=== PATIENT | female | born 1980 | race Caucasian/White ===

== ENCOUNTER 2018-06-29 18:46 | Inpatient (IN) | payer OTHER ==
[2018-06-29 20:03] LABS: EGFR Non-African American 103.9 (>60)
[2018-06-29 20:34] LABS: Hematocrit 30 % (35-47); Hemoglobin 10.4 g/dl (12.0-16.0); Mean Corpuscular HGB Conc 35 g/dl (31-36); Mean Corpuscular Hemoglobin 37 pg (27-31); Mean Corpuscular Volume 107 fL (80-97); Mean Platelet Volume 8.9 um3 (7.4-10.4); Platelet Count 126 10^3/ul (150-450); Red Blood Count 2.78 10^6/ul (4.00-5.40); Red Cell Distribution Width 16 % (10.5-15)
[2018-06-29 21:07] LABS: ABS Basophils 0.1 10^3/ul (0-0.2); ABS Eosinophils 0 10^3/ul (0-0.6); ABS Lymphocytes 0.8 10^3/ul (1.0-4.8); ABS Monocytes 0.6 10^3/ul (0-0.8); ABS Neutrophils 7.5 10^3/ul (1.5-7.7); ABS Nucleated RBC 0 10^3/ul
--- NOTE | 2018-06-29 21:09 | ED ---
Abdominal Pain/Female - HPI Summary HPI Summary: This patient is a 38 year old F presenting to [facility] with a chief complaint of upper abd pain that began one week ago. The patient rates the pain 8/10 in severity. Symptoms aggravated by nothing. Symptoms alleviated by nothing. Patient reports recent weight loss (170 lbs five months ago and is now 140 lbs) , diarrhea, nausea, vomiting, and abdominal bloating. - History of Current Complaint Chief Complaint: EDAbdPain Stated Complaint: ABD PAIN/BLOATING/VOMITING Time Seen by Provider: 06/29/18 20:52 Hx Obtained From: Patient Hx Last Menstrual Period: 06/30/15 ?: No Onset/Duration: Sudden Onset, Lasting Weeks, Still Present Timing: Constant Severity Initially: Severe Severity Currently: Severe Pain Intensity: 8 Pain Scale Used: 0-10 Numeric Location: Other - Upper Radiates: No Aggravating Factor(s): Nothing Alleviating Factor(s): Nothing Associated Signs and Symptoms: Positive: Other: - Positive recent weight loss ( 170 lbs five months ago and is now 140 lbs), diarrhea, nausea, vomiting, and abdominal bloating. Allergies/Adverse Reactions: Allergies Allergy/AdvReac Type Severity Reaction Status Date / Time No Known Allergies Allergy Verified 06/29/18 18:50 PMH/Surg Hx/FS Hx/Imm Hx Previously Healthy: Yes Endocrine/Hematology History: Denies: Hx Diabetes, Hx Thyroid Disease Cardiovascular History: Denies: Hx Hypertension Respiratory History: Denies: Hx Asthma, Hx Chronic Obstructive Pulmonary Disease (COPD) GI History: Denies: Hx Ulcer Infectious Disease History: No Infectious Disease History: Denies: Hx Hepatitis, Hx Human Immunodeficiency Virus (HIV), Traveled Outside the [place] in Last 30 Days - Family History Known Family History: Positive: Other - Pulmonary hypertension - Social History Occupation: Employed Full-time Lives: With Family Alcohol Use: None Hx Substance Use: No Substance Use Type: Reports: None Hx Tobacco Use: Yes Smoking Status (MU): Heavy Every Day Tobacco Smoker Amount Used/How Often: 1 PPD Review of Systems Negative: Fever Positive: Abdominal Pain, Vomiting, Diarrhea, Nausea, Other - Positive recent weight loss and abdominal bloating All Other Systems Reviewed And Are Negative: Yes Physical Exam - Summary Physical Exam Summary: Appearance: Well appearing, no pain distress Skin: warm, dry, reflects adequate perfusion Head/face: normal Eyes: EOMI, WHITLEY, yellow sclera ENT: normal Neck: supple, non-tender Respiratory: CTA, breath sounds present Cardiovascular: RRR, pulses symmetrical Abdomen: tenderness in epigastric and RUQ, soft Bowel: present Musculoskeletal: normal, strength/ROM intact Neuro: normal, sensory motor intact, A&Ox3 Triage Information Reviewed: Yes Vital Signs On Initial Exam: Initial Vitals Temp Pulse Resp BP Pulse Ox 98.2 F 106 18 137/85 100 06/29/18 18:47 06/29/18 18:47 06/29/18 18:47 06/29/18 18:47 06/29/18 18:47 Vital Signs Reviewed: Yes Diagnostics - Vital Signs Vital Signs Temp Pulse Resp BP Pulse Ox 06/29/18 18:47 98.2 F 106 18 137/85 100 - Laboratory Lab Results: Lab Results 06/29/18 06/29/18 Range/Units 19:31 19:31 WBC 9.0 (3.5-10.8) 10^3/ul RBC 2.78 L (4.00-5.40) 10^6/ul Hgb 10.4 L (12.0-16.0) g/dl Hct 30 L (35-47) % MCV 107 H (80-97) fL MCH 37 H (27-31) pg MCHC 35 (31-36) g/dl RDW 16 H (10.5-15) % Plt Count 126 L (150-450) 10^3/ul MPV 8.9 (7.4-10.4) um3 Neut % (Auto) Pending Lymph % (Auto) Pending Sunflower % (Auto) Pending Eos % (Auto) Pending Baso % (Auto) Pending Absolute Neuts (auto) Pending Absolute Lymphs (auto) Pending Absolute Monos (auto) Pending Absolute Eos (auto) Pending Absolute Basos (auto) Pending Absolute Nucleated RBC Pending Nucleated RBC % Pending Sodium 133 L (135-145) mmol/L Potassium 2.8 L (3.5-5.0) mmol/L Chloride 97 L (101-111) mmol/L Carbon Dioxide 25 (22-32) mmol/L Anion Gap 11 (2-11) mmol/L BUN 7 (6-24) mg/dL Creatinine 0.64 (0.51-0.95) mg/dL Est GFR ( Amer) 125.7 (>60) Est GFR (Non-Af Amer) 103.9 (>60) BUN/Creatinine Ratio 10.9 (8-20) Glucose 123 H (70-100) mg/dL Calcium 8.1 L (8.6-10.3) mg/dL Total Bilirubin 4.20 H (0.2-1.0) mg/dL AST 383 H (13-39) U/L ALT 105 H (7-52) U/L Alkaline Phosphatase 86 (34-104) U/L C-Reactive Protein 14.75 H (<8.01) mg/L Total Protein 9.1 H (6.4-8.9) g/dL Albumin 2.9 L (3.2-5.2) g/dL Globulin 6.2 H (2-4) g/dL Albumin/Globulin Ratio 0.5 L (1-3) Lipase 167 H (11.0-82.0) U/L Beta HCG, Quant < 0.60 mIU/mL Result Diagrams: 06/29/18 19:31 06/29/18 19:31 Lab Statement: Any lab studies that have been ordered have been reviewed, and results considered in the medical decision making process. - CT CT Abdomen and Pelvis CT Interpretation Completed By: Radiologist Summary of CT Findings: CT abdomen and pelvis reveals, per radiologist, 1. Diffuse colonic wall thickening which could represent colitis or sequela of hypoproteinemia.. No pneumatosis or portal venous air. No bowel obstruction. 2. Distended thickwalled gallbladder. No calcified gallstones. This finding may also be secondary to hypoproteinemia but cholecystitis cannot be excluded radiographically. A HIDA scan may be helpful to exclude cystic duct obstruction. 3. Moderate ascites. ED physician has reviewed this radiology report. - Additional Comments Diagnostic Additional Comments: Gallbladder US reveals, per radiologist, 1. No shadowing gallstones. Thickened gallbladder wall measuring 6 mm. Layering gallbladder sludge. 2. Hepatic steatosis and hepatomegaly. 3. Ascites. ED physician has reviewed this radiology report. Abdominal Pain Fem Course/Dx - Course Course Of Treatment: This patient is a 38 year old F presenting to [facility] with a chief complaint of upper abd pain that began one week ago. Physical Exam Findings: Yellow sclera, tenderness in epigastric and RUQ. An EKG taken at 2139 reveals normal sinus rhythm at 91 BPM with no acute changes. Gallbladder US reveals, per radiologist, 1. No shadowing gallstones. Thickened gallbladder wall measuring 6 mm. Layering gallbladder sludge. 2. Hepatic steatosis and hepatomegaly. 3. Ascites. CT abdomen and pelvis reveals, per radiologist, 1. Diffuse colonic wall thickening which could represent colitis or sequela of hypoproteinemia.. No pneumatosis or portal venous air. No bowel obstruction. 2. Distended thickwalled gallbladder. No calcified gallstones. This finding may also be secondary to hypoproteinemia but cholecystitis cannot be excluded radiographically. A HIDA scan may be helpful to exclude cystic duct obstruction. 3. Moderate ascites. Bloodwork and UA obtained. In the ED course the patient was given contrast, potassium chloride, and Zosyn. Consult with Dr. Perry (hospitalist) at 0025. She recommends patient be transferred. Consult with [facility] at 0051. They communicated they have no beds available for transfer. Consult with [facility] at 0137. They recommended a MRCP be performed here and if there is an obstruction they will accept the transfer. [place] [id number]. She agrees to admit patient for further evaluation. The patient is agreeable with this plan. - Diagnoses Differential Diagnosis: Positive: Diverticulitis, Gall Bladder Disease, Pancreatitis, Renal Colic, Urinary Tract Infection Provider Diagnoses: Abdominal pain, Ascites, Hepatitis, Alcoholism, Acalculous cholecystitis - Provider Notifications Discussed Care Of Patient With: Ruth Perry Time Discussed With Above Provider: 00:25 Instructed by Provider To: Other - Consult with Dr. Perry (hospitalist) at 0025. She recommends patient be transferred. Consult with [facility] at 0051. They communicated they have no beds available for transfer. Consult with [facility] at 0137. They recommended a MRCP be performed here and if there is an obstruction they will accept the transfer. [place] [id number]. She agrees to admit patient for further evaluation. - Critical Care Time Critical Care Time: 30-74 min Discharge - Sign-Out/Discharge Documenting (check all that apply): Patient Departure - Admit to [facility] [place] - Discharge Plan Condition: Stable Disposition: ADMITTED TO [facility] Referrals: No Primary Care Phys,NOPCP [Primary Care Provider] - - Billing Disposition and Condition Condition: STABLE Disposition: Admitted to [facility] - Attestation Statements Document Initiated by Scribe: Yes Documenting Scribe: Licha March Provider For Whom Dayana is Documenting (Include Credential): Ken Ruiz MD Scribe Attestation: ILicha, scribed for Ken Ruiz MD on 06/30/18 at 0225. Scribe Documentation Reviewed: Yes Provider Attestation: The documentation as recorded by the vijiibLicha carvalho accurately reflects the service I personally performed and the decisions made by me, Ken Ruiz MD
[2018-06-29 21:10] LABS: ABS Basophils 0 10^3/ul (0-0.2); ABS Neutrophils 7.3 10^3/ul (1.5-7.7); Monocytes % 4 % (0-7)
--- NOTE | 2018-06-29 21:56 | RAD ---
EXAM: US Abdomen Limited, Right Upper Quadrant EXAM DATE/TIME: 06/29/2018 9:37 PM CLINICAL HISTORY: 38 years old, female; Pain; Abdominal pain; Localized; Right upper quadrant (ruq); Additional info: Cholecystitis TECHNIQUE: Real-time ultrasound of the abdomen with image documentation. Examination was focused on the right upper quadrant. COMPARISON: No relevant prior studies available. FINDINGS: Liver: The liver is enlarged measuring 20 cm craniocaudad. No focal mass identified.The liver is diffusely echogenic consistent with fatty infiltration. Gallbladder: No shadowing gallstones identified. Layering high density sludge is noted in the gallbladder. The gallbladder wall is thickened measuring 6 mm. Common bile duct: The common bile duct measures 0.4 cm. Pancreas: The pancreatic tail is obscured by bowel gas. Remainder of the gland is normal in appearance. Right kidney: The right kidney measures 11.4 x 5.1 x 5.6 cm. No shadowing stones or hydronephrosis. Intraperitoneal space: Fluid is noted in all 4 quadrants of the abdomen. IMPRESSION: 1. No shadowing gallstones. Thickened gallbladder wall measuring 6 mm. Layering gallbladder sludge. 2. Hepatic steatosis and hepatomegaly. 3. Ascites. To contact [facility] with a general question: [facility] - [phone] For direct physician to physician contact: Physician Hotline - [phone] [facility] ([facility] Facility ID #[id number])
[2018-06-29] MEDS ORDERED: Potassium Chlor TAB* 20 MEQ TAB.ER PO ONE (22:12)
[2018-06-29 22:50] LABS: Urine Appearance Cloudy; Urine Blood Negative (Negative); Urine Color Amber; Urine Ketones Trace (Negative); Urine Protein 2+(100 mg/dL) (Negative); Urine Red Blood Cell Absent (Absent); Urine Specific Gravity 1.023 (1.010-1.030); Urine Urobilinogen Positive (Negative); Urine White Blood Cell Trace(0-5/hpf) (Absent)
[2018-06-29] MEDS ORDERED: Iohexol 300* (CONTRAST) 10 ML SDV IV ONE (23:33)
[2018-06-30] MEDS ORDERED: Potassium Chlor TAB* 20 MEQ TAB.ER PO ONE (00:17)
[2018-06-30] MEDS ORDERED: Piperacillin/Tazobac ADVAN(*) 3.375 GM in NS 0.9% 100 ML* 100 ML IVPB ONE (00:28)
--- NOTE | 2018-06-30 00:31 | RAD ---
EXAM: CT Abdomen and Pelvis With Intravenous Contrast EXAM DATE/TIME: 06/29/2018 11:47 PM CLINICAL HISTORY: 38 years old, female; Pain; Abdominal pain; Flank; Upper; Additional info: Ab pain/pancreatitis TECHNIQUE: Axial computed tomography images of the abdomen and pelvis with intravenous contrast. All CT scans at this facility use at least one of these dose optimization techniques: automated exposure control; mA and/or kV adjustment per patient size (includes targeted exams where dose is matched to clinical indication); or iterative reconstruction. Coronal and sagittal reformatted images were created and reviewed. CONTRAST: 85 ml of OMNI 300 administered intravenously. COMPARISON: GB US GALL BLADDER 06/29/2018 9:20 PM FINDINGS: Lower thorax: No acute findings. ABDOMEN: Liver: Enlarged measuring 21 cm craniocaudad.. No focal mass identified. No intrahepatic biliary dilatation. Gallbladder and bile ducts: The gallbladder is distended with thickened wall. No calcified gallstones identified. Pancreas: Unremarkable. No ductal dilation. Spleen: Unremarkable. No splenomegaly. Adrenals: Unremarkable. No mass. Kidneys and ureters: No mass or hydronephrosis. Stomach and bowel: Wall of the colon is diffusely thickened. No pneumatosis or portal venous air. No bowel obstruction. Appendix: No evidence of appendicitis. PELVIS: Bladder: Unremarkable as visualized. Reproductive: 1.3 cm cystic structure in the cervix, likely a nabothian cyst. ABDOMEN and PELVIS: Intraperitoneal space: Moderate ascites in the abdomen and pelvis. No free air. Bones/joints: No acute fracture or dislocation. Soft tissues: Unremarkable. Vasculature: No abdominal aortic aneurysm. Lymph nodes: No enlarged lymph nodes. IMPRESSION: 1. Diffuse colonic wall thickening which could represent colitis or sequela of hypoproteinemia.. No pneumatosis or portal venous air. No bowel obstruction. 2. Distended thickwalled gallbladder. No calcified gallstones. This finding may also be secondary to hypoproteinemia but cholecystitis cannot be excluded radiographically. A HIDA scan may be helpful to exclude cystic duct obstruction. 3. Moderate ascites. To contact [facility] with a general question: [facility] - [phone] For direct physician to physician contact: Physician Hotline - [phone] [facility] ([facility] Facility ID #[id number])
[2018-06-30] MEDS ORDERED: NS 0.9% 1000 ML* 1,000 ML IV SCH (02:30)
[2018-06-30] MEDS ORDERED: Magnesium Sulfate 2 GM IV* 2 GM/50 ML BAG IVPB ONE ×2 (02:35→04:00)
[2018-06-30 02:59] LABS: INR 1.4 (0.77-1.02)
[2018-06-30] MEDS ORDERED: Pantoprazole IV* 40 MG IV SCH (03:00)
[2018-06-30] MEDS ORDERED: LORazepam TAB(*) 1 MG PO SCH (03:00)
[2018-06-30 03:08] LABS: Hematocrit 27 % (35-47); Hemoglobin 9.1 g/dl (12.0-16.0); Mean Corpuscular HGB Conc 34 g/dl (31-36); Mean Corpuscular Hemoglobin 36 pg (27-31); Mean Corpuscular Volume 106 fL (80-97); Mean Platelet Volume 9.1 um3 (7.4-10.4); Platelet Count 109 10^3/ul (150-450); Red Blood Count 2.54 10^6/ul (4.00-5.40); Red Cell Distribution Width 16 % (10.5-15); White Blood Count 9.3 10^3/ul (3.5-10.8)
[2018-06-30 03:13] LABS: EGFR Non-African American 116.3 (>60)
[2018-06-30 03:27] LABS: ABS Basophils 0.1 10^3/ul (0-0.2); ABS Eosinophils 0 10^3/ul (0-0.6); ABS Lymphocytes 1.4 10^3/ul (1.0-4.8); ABS Monocytes 0.6 10^3/ul (0-0.8); ABS Neutrophils 7.2 10^3/ul (1.5-7.7); ABS Nucleated RBC 0 10^3/ul; Eosinophil % 0.2 % (0-6); Lymphocyte % 14.9 % (25-47); Nucleated Red Blood Cells % 0.1
[2018-06-30] MEDS ORDERED: NS 0.9% 1000 ML* 1,000 ML IV ONE (04:00)
[2018-06-30] MEDS: Sucralfate TAB* 1 GM PO SCH ×4 (04:32→21:47)
[2018-06-30] MEDS: Pantoprazole IV* 40 MG IV SCH (04:32)
[2018-06-30] MEDS: Morphine VIAL* 4 MG/ML VIAL (1 ml vial) IV PRN ×5 (04:45→23:33)
[2018-06-30] MEDS: KCL 10 MEQ/50 ML IVPREMIX* 10 MEQ/50 ML BAG IV SCH ×4 (04:53→19:42)
--- NOTE | 2018-06-30 05:30 | HP ---
HISTORY AND PHYSICAL: DATE OF ADMISSION: 06/30/18 PRIMARY CARE PROVIDER: None. ATTENDING PHYSICIAN WHILE IN THE HOSPITAL: Dr. Ruth Perry * (report dictated by Kelvin Chu NP). CHIEF COMPLAINT: 1. Epigastric discomfort. 2. Nausea and vomiting. HISTORY OF PRESENT ILLNESS: Mrs. Rocha is a 38-year-old female patient, who previously had no past medical history. She does admit to anemia, also does admit to having a history of drinking at least 3 beers a day and then drinking heavily on the weekends. She is coming into our emergency department today stating that she for the last several weeks, she has been having epigastric discomfort that has been getting progressively worse over the last 2 weeks. She has noticed that her stomach has been getting more distended, more bloated and she has also noted that she has been having hard time taking a deep breath because she feels like her stomach is in her chest. She describes the pain mostly in the epigastric area. She says that she cannot really eat or drink anything because she is feeling nauseated or it makes her vomit and when she does eat, it does cause discomfort in her stomach. She describes it as a burning sharp, stabbing, pain. She denies having any chest pressure and she noticed that her abdomen has become more swollen. She did vomit blood once. She was concerned because of that and the fact that her belly was getting bigger and the pain just was not getting any better, so she decided to come into the emergency department today. PAST MEDICAL HISTORY: Significant for anemia. PAST SURGICAL HISTORY: Denied. HOME MEDICATIONS: She takes ibuprofen 400 mg p.o. daily as needed. She states she takes this about 2 to 3 times a week for headaches. ALLERGIES TO MEDICATION: No known drug allergies. FAMILY HISTORY: Mother had history of hyperlipidemia. Father had a heart attack at the age of 45. SOCIAL HISTORY: She is half a pack a day smoker for about 18 years. She does admit to drinking 3 beers a night. She denies any drug use. Surrogate decision maker is her . REVIEW OF SYSTEMS: There is no documented fever. She denied having any significant weight change. There was no double vision. There was no ear discharge. She denies having any rhinorrhea. There is no sore throat, no thyroid enlargement. Denied having any chest pain. There is no orthopnea. There is no nocturnal dyspnea. She did admit to abdominal pain. She did admit to nausea with vomiting. She denies having any dysuria. There is no frequency , no seizure, no loss of consciousness. No pruritus and no skin ulceration. Review of 14 systems completed, all others negative. PHYSICAL EXAMINATION GENERAL: At this time, Mrs. Rocha is a 38-year-old female patient. She is sitting in the ED stretcher. She does not appear to be in any acute distress. VITAL SIGNS: Blood pressure 125/68, pulse 84, respirations 16, O2 sat 99%, temperature 98.2. HEENT: Head: Atraumatic and normocephalic. Eyes: EOMs are intact. Sclerae anicteric and not pale. Throat: Oral mucosa appears to be moist. No oropharyngeal erythema. NECK: Supple. LUNGS: Clear to auscultation bilaterally. No wheezes, rales, or rhonchi. HEART: Sounds S1, S2. Regular rate and rhythm. No murmurs, rubs, or gallops. ABDOMEN: There was dullness on percussion. She did appear to have a mild amount of ascites. She has elevated liver borders. She is tender in the epigastric area. Bowel sounds are present. She does appear again to have ascites on exam. She does have distention of her abdominal veins. EXTREMITIES: Pulses were 2+ throughout. She had no peripheral edema. She is moving all 4 extremities with 5/5 strength. NEUROLOGIC: The patient is awake. She is alert, she is oriented x3. Tongue is midline. Burlap Roll Coverer were equal. She had no gross focal deficits. SKIN: Intact. She does have ecchymosis noted to the left lower extremity. DIAGNOSTIC STUDIES/LAB DATA: WBC 9.0, RBC of 2.78, hemoglobin of 10.4, hematocrit of 30, platelet count of 126. INR is pending. She had sodium of 133 , potassium was 2.8. The chloride was 97, bicarb 25, BUN 7, creatinine 0.64, glucose 123, calcium 8.1, mag 1.5, total bili 4.2, AST 383, ALT 105, alk phos 86. Troponin 0.01. The albumin was 2.9, beta-HCG negative. Lipase 167. Urine showed 2+ protein, trace ketones, 1+ bilirubin, present hyaline cast and she had a serum alcohol of 169. She had multiple imaging here in the ED, which does start out with abdomen and pelvis CT scan, which showed findings: Diffuse colonic wall thickening, which could represent colitis or sequelae of hypoproteinemia. No pneumatosis or portal venous air. No bowel obstruction, distended thickened gallbladder. No calcified stones. Finding may be also secondary to hypoproteinemia, but cholecystitis cannot be excluded radiographically. HIDA scan may be helpful. Moderate ascites. She had gallbladder ultrasound obtained today as well, which revealed no shadowing gallstones, thickened gallbladder wall measuring 6 mm, layering gallbladder sludge, hepatic steatosis and hepatomegaly, ascites. She had an EKG obtained today, which showed a normal sinus rhythm with a rate of 91. She had no ST elevation. She had inverted T waves in lead III, slight depression in lead I, but no other acute findings were noted. Old medical records were reviewed. ASSESSMENT AND PLAN: Mrs. Rocha is a 38-year-old female patient coming into the ED today with complaints of abdominal discomfort with nausea and vomiting in the epigastric area. We were asked to evaluate for admission. She will be admitted under inpatient status for: 1. Cirrhosis. Again, I suspect that the patient does have cirrhosis, probably from alcoholism. This is a new diagnosis for her. I am going to get the GI team involved. I am going to go ahead and put her on the WAM protocol given her history of alcoholism and I also placed a Social Work consult. She was freely open to me that she used to abuse prescription opiates and then she has been self medicating with alcohol for the last 4 years and she drinks on a nightly basis. So, we will get GI involved to help us; but at this point, we will repeat her INR, which is pending. We will repeat her CMP in the morning. I suspect the bili and the LFTs are up due to the alcoholism. She may have mild alcoholic hepatitis and will follow up with LFTs. 2. Abdominal discomfort. Again, she may have an ulcer. She did vomit blood once. I put her on once a day PPI. We will check her CBC 4 hours from now. I will ask 2 peripheral IVs and we will continue to monitor. 3. ETOH abuse. We will go ahead and order Social Work consult and I have also ordered the WAM protocol and I am supplementing her with thiamine and folate. 4. Elevated lipase probably secondary to the alcoholism. I will trend this in the morning. I am just putting her on clears and hydrating her and will continue to monitor. 5. Hypokalemia. I am replacing. 6. Hypomagnesemia. I am replacing. 7. DVT prophylaxis. I have ordered SCDs. 8. Code status. She is a full code. TIME SPENT: Time spent on the admission was 60 minutes, greater than half the time was spent [id number] with the patient obtaining my history and physical, other half the time was spent going over plan of care with the patient and implementing plan of care. I did discuss the plan of care with my attending, Dr. Perry; she is in agreement. KELVIN CHU, NESS [id number]/CPS #: [id number] MTDD
[2018-06-30] MEDS: Ondansetron INJ* 2 MG/ML VIAL IV PRN (06:03)
[2018-06-30] MEDS ORDERED: Potassium Chloride LIQUID* 20 MEQ PACKET PO ONE (07:48)
[2018-06-30] MEDS: Thiamine TAB* 100 MG TAB PO SCH (09:05)
[2018-06-30] MEDS: Folic Acid TAB* 1 MG PO SCH (09:05)
[2018-06-30] MEDS: Multivitamins/Minerals TAB PO SCH (09:05)
--- NOTE | 2018-06-30 09:14 | RAD ---
HISTORY: Cirrhosis, abdominal pain COMPARISONS: CT dated June 29, 2018 , ultrasound dated June 29, 2018 TECHNIQUE: Multiple color Doppler and spectral Doppler images were obtained of the portal veins, hepatic veins, splenic veins, and IVC. FINDINGS: Evaluation is technically limited. The portal veins are patent with monophasic hepatopedal flow. The splenic vein is patent with monophasic hepatopedal flow. There is suboptimal visualization of the right hepatic vein, which is patent on the CT scan of June 29, 2018. The visualized pelvic veins are patent with triphasic hepatofugal flow. The IVC is patent with normal triphasic venous waveforms. IMPRESSION: THE PORTAL VEINS, SPLENIC VEINS, AND VISUALIZED HEPATIC VEINS ARE PATENT WITH NORMAL FLOW ON SPECTRAL DOPPLER IMAGING. THERE IS SUBOPTIMAL VISUALIZATION OF THE RIGHT HEPATIC VEIN, THOUGH THIS IS PATENT ON THE PREVIOUS CT EXAMINATION.
[2018-06-30] MEDS ORDERED: Magnesium Sulf 4 GM/100 ML IV* 4,000 MG/100 ML BAG IVPB ONE (11:23)
[2018-06-30] MEDS: KCL 20 MEQ/100 ML IVPREMIX* 20 MEQ/100 ML BAG IV SCH ×3 (12:49→21:47)
[2018-06-30 13:49] LABS: Hematocrit 26 % (35-47); Hemoglobin 8.9 g/dl (12.0-16.0)
--- NOTE | 2018-06-30 16:11 | PN ---
Subjective Date of Service: 06/30/18 Interval History: Patient is feeling better today. Complains of aching abdominal pain in the epigastrum which is better today but is still severe but controllable with morphine. Patient has been having increased abdominal distension. Patient denies F/C, N/V, CP, SOB. Patient states she has had a small amount of blood in the stool twice before admission and blood in her vomit a couple times. Patient denies IV drug abuse. Patient states her last drink as 2 days ago. Family History: Unchanged from Admission Social History: Unchanged from Admission Past Medical History: Unchanged from Admission Objective Active Medications: Folic Acid (Folvite Tab*) 1 mg PO DAILY [facility] Last Admin: 06/30/18 09:05 Dose: 1 mg Potassium Chloride (Potassium Chloride 20 Meq/100 Ml Ivpremix*) 20 meq in 100 mls @ 50 mls/hr IV Q2H [facility] Stop: 06/30/18 17:59 Last Admin: 06/30/18 12:49 Dose: 50 mls/hr Lorazepam (Ativan Tab(*)) 0 - 6 mg PO .PER [facility] PROTOCOL [facility]; Protocol Morphine Sulfate (Morphine Vial*) 1 mg IV Q4H PRN PRN Reason: PAIN Last Admin: 06/30/18 15:46 Dose: 1 mg Multivitamins/Minerals (Theragran/Minerals Tab*) 1 tab PO DAILY [facility] Last Admin: 06/30/18 09:05 Dose: 1 tab Ondansetron HCl (Zofran Inj*) 4 mg IV Q6H PRN PRN Reason: NAUSEA Last Admin: 06/30/18 06:03 Dose: 4 mg Pantoprazole Sodium (Protonix Iv*) 40 mg IV 0901 [facility] Last Admin: 06/30/18 04:32 Dose: 40 mg Sucralfate (Carafate*) 1 gm PO TID [facility] Last Admin: 06/30/18 15:47 Dose: 1 gm Thiamine HCl (Vitamin B-1 Tab*) 100 mg PO DAILY [facility] Last Admin: 06/30/18 09:05 Dose: 100 mg Vital Signs - 8 hr 06/30/18 06/30/18 06/30/18 09:15 09:59 12:33 Temperature 99.3 F 99.2 F Pulse Rate 98 93 Respiratory 16 14 18 Rate Blood Pressure 126/77 115/77 (mmHg) O2 Sat by Pulse 97 95 Oximetry 06/30/18 06/30/18 06/30/18 14:08 15:10 15:46 Temperature 99.3 F 98.2 F Pulse Rate 98 94 Respiratory 14 18 18 Rate Blood Pressure 116/67 116/75 (mmHg) O2 Sat by Pulse 100 97 Oximetry Oxygen Devices in Use Now: None Appearance: Patient is a 38yo female who is jaundiced and appears stated age. Eyes: No Scleral Icterus, PERRLA Ears/Nose/Mouth/Throat: NL Teeth, Lips, Gums, Clear Oropharnyx, Mucous Membranes Moist Neck: NL Appearance and Movements; NL JVP, Trachea Midline Respiratory: Symmetrical Chest Expansion and Respiratory Effort, Clear to Auscultation Cardiovascular: NL Sounds; No Murmurs; No JVD, RRR, No Edema Abdominal: - - Distension, positive fluid wave. Epigastric tenderness with negative Gavin's sign. Lymphatic: No Cervical Adenopathy Extremities: No Edema Skin: No Rash or Ulcers, No Nodules or Sclerosis Neurological: Alert and Oriented x 3, NL Sensation, NL Muscle Strength and Tone , - - CN II-XII intact. No Asterixis. - Nutrition: Malnutrition Diagnosis/Plan Malnutrition Assessment by Registered Dietitian: Malnutrition Assessment Clinical Characteristics Acute,Severe Malnutrition Assessment: - consumption of only clear liquids x1 wk ( Criteria intake <50% of needs >5 days) - 14.7% wt loss x5 mos (UBW 170lb (01/2018), current wt 145lb) Malnutrition Assessment: 1. continue Zofran and Carafate. Will monitor GI Interventions s/sx for impact on intake. 2. offer Ensure Clear (240kcal, 8g prot) to optimize kcal-protein intake 3. recommend advancing diet to low sodium (and possibly low fat) as able Malnutrition Assessment: Goals 1) Pt will tolerate diet advancement and nutritional supplement w/o development/ exacerbation of GI s/sx 2) Adequate po intake to support lean body mass w/o undesired wt loss/gain 3) Appropriate fluid/electrolyte balance w/ adequate po intake and repletion 4) Abstinence from alcohol Result Diagrams: 06/30/18 12:36 06/30/18 02:48 Additional Lab and Data: Lab Results Assess/Plan/Problems-Billing Assessment: Patient is a 38yo female with a PMH for anemia and alcohol abuse who is admitted with epigatric pain and 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 - Patient Problems (1) Decompensated liver disease Current Visit: Yes Status: Acute Code(s): K74.69 - OTHER CIRRHOSIS OF LIVER SNOMED Code(s): 05738529 Comment: - Appreciate GI consult. - Due to Alcoholic hepatitis, Discriminant function pending. - Possible Steroids after SBP ruled out - Monitor daily INR and CMP - Recommended alcohol abstinence. - MELD 19 (2) Anemia Current Visit: Yes Status: Acute Code(s): D64.9 - ANEMIA, UNSPECIFIED SNOMED Code(s): 079383105 Comment: - Patient states she has been anemic her whole life - Iron studies consistent with AOCD - Folate and B12 WNL - Possibly alcohol related. - Monitor for signs of bleeding and trend H/H (3) Alcohol abuse Current Visit: Yes Status: Acute Code(s): F10.10 - ALCOHOL ABUSE, UNCOMPLICATED SNOMED Code(s): 79176441 Comment: - Daily alcohol use and binges on weekends. - Alcohol still elevated at admission - Monitor WAM score and PRN ativan - Vitamins ordered. - No overt signs of alcohol withdrawal at this time. (4) DVT prophylaxis Current Visit: Yes Status: Acute Code(s): LRE0008 - SNOMED Code(s): 883275565 Comment: - SCDs in setting of possible GI bleed. (5) Full code status Current Visit: Yes Status: Acute Code(s): Z78.9 - OTHER SPECIFIED HEALTH STATUS SNOMED Code(s): 362933647 Status and Disposition: Inpatient.
[2018-06-30 18:59] LABS: Hematocrit 27 % (35-47); Hemoglobin 9.2 g/dl (12.0-16.0)
[2018-06-30] MEDS ORDERED: KCL 20 MEQ/100 ML IVPREMIX* 20 MEQ/100 ML BAG ONE (21:46)
--- NOTE | 2018-06-30 22:56 | CONS ---
CC: Jason Venegas NP * CONSULTATION REPORT: DATE OF CONSULT: 06/30/18 HOSPITALIST: Jason Venegas NP REASON FOR CONSULTATION: Ascites, abnormal liver studies. CHIEF COMPLAINT: Abdominal swelling and dyspepsia. HISTORY OF PRESENT ILLNESS: This is a 38-year-old female with a history of alcohol abuse who presents with increased abdominal swelling and anemia. She states she has about 3 beers a day, but then on the weekends, can go through a bottle of tequila with her significant other on the weekends. She has been doing this for at least 5 to 6 years to the heavy degree. She also admits to epigastric discomfort and feeling of bloating and increased abdominal distention , but also admits to losing weight over the last few months as well. The pain is diffuse 6/10 cramping. Nothing makes it better or worse with the exception of deep breath makes the pain worse as well. She states that her appetite has been poor and she has not had anything to eat or drink and feels nauseated. She denies any chest pain, but admits to some shortness of breath. She denies any overt black or blood in the stool. No diarrhea or constipation. She has been taking ibuprofen multiple times a day for headaches. Denies any family history of liver disease or stomach disease. No history of liver disease for her in the past. She does admit to using crush drugs in the past that she did snort, but states she has never done any injection drugs. Remainder of the 14- point review of system is grossly negative. PAST MEDICAL HISTORY: Anemia and alcohol abuse. PAST SURGICAL HISTORY: None. HOME MEDICATIONS: Ibuprofen p.r.n. ALLERGIES TO MEDICATIONS: No known drug allergies. FAMILY HISTORY: No family history of GI or liver cancer. No history of IBD. Her father had heart attack at age of 45. SOCIAL HISTORY: At least half pack a day smoker for 18 years. Extensive heavy alcohol abuse as above. Three beers a night and a bottle of tequila on the weekend. REVIEW OF SYSTEMS: The remainder of the 14-point review of systems is grossly negative except for as described in the HPI. PHYSICAL EXAMINATION: Vital Signs: Blood pressure is 115/77, pulse is 93, temperature is 99.2, respiratory rate is 18. She is 95% on room air. In general, she is alert and oriented, sitting in bed, uncomfortable, in no acute distress. HEENT: Atraumatic, normocephalic. Pupils equal, round, reactive to light. Sclerae are icteric. Conjunctivae are pale. She is alertly jaundiced. Neck is supple. Trachea midline. Lungs: Clear to auscultation bilaterally. No wheezes, rales, or rhonchi. Heart: Regular rate and rhythm. S1, S2. No murmurs, rubs, or gallops. Abdomen is distended. There is positive shifting dullness. There is some mild diffuse tenderness more pronounced in the epigastric area. Bowel sounds are present. There is prominence to her abdominal vasculature. Extremities: 2+ pulses throughout. No significant peripheral edema. Neurologic: Positive asterixis. Alert and oriented x3. Skin: Intact with a few scattered ecchymosis. LABORATORY DATA: Hemoglobin is 8.9, hematocrit of 26. I do not have a prior baseline for her. RDW is 16, platelet count is 109. INR is 1.40. Sodium 132, potassium is 2.9, magnesium is 1.4, calcium is 7.9, TIBC is 162, percent saturation is 80, ferritin 370, bilirubin 3.9, AST is 340, ALT is 95, alkaline phosphatase is 78, lipase 158, vitamin B12 is 847, folate is 7.65. She had a portal vein ultrasound, did not show evidence of thrombus. She had a gallbladder ultrasound, it did show some sludge and hepatic steatosis and hepatomegaly along with ascites. No distinct gallstones. No biliary dilatation. ASSESSMENT AND PLAN: This is a 38-year-old female with ascites, history of alcohol abuse. 1. Decompensated liver disease. Suspicious for more along the lines of alcoholic hepatitis. I do not have a prothrombin time. I ordered this and calculate her discriminant function, although I suspect will be elevated above 32. Her MELD sodium is currently 19. She needs a complete liver workup. The ultrasound has been negative for Budd-Chiari. She needs complete cessation of alcohol. We will do a diagnostic paracentesis with cell count and diff to rule out spontaneous bacterial peritonitis and also send for cytology. Her ferritin is elevated along with her percent sat. I feel like this is likely an acute phase reaction, but she will need hemochromatosis HFE (gene testing) as an outpatient. In regards to her anemia, would monitor at this time. There are no overt signs of bleeding. She may need an upper endoscopy if there is evidence of ongoing loss. Also, ordered serologies to rule out autoimmune liver disease and given her risk factors for prior substance abuse, we will order hepatitis panel as well. 2. Anemia. Microcytic, may be secondary to EtOH abuse. Monitor for signs of overt bleeding. 3. EtOH abuse. Extensively counseled. We will continue to monitor. If there are no signs of overt infection, would consider steroids depending on her discriminant function for alcoholic hepatitis. She needs complete abstinence from alcohol. We will follow with you. [id number]/[facility] #: [id number] [facility] CENT[facility]
[2018-07-01] MEDS: Morphine VIAL* 4 MG/ML VIAL (1 ml vial) IV PRN ×3 (03:57→18:09)
[2018-07-01 05:34] LABS: ABS Basophils 0.1 10^3/ul (0-0.2); ABS Eosinophils 0.1 10^3/ul (0-0.6); ABS Lymphocytes 1.3 10^3/ul (1.0-4.8); ABS Monocytes 0.5 10^3/ul (0-0.8); ABS Neutrophils 7.4 10^3/ul (1.5-7.7); ABS Nucleated RBC 0 10^3/ul; Eosinophil % 1.2 % (0-6); Hematocrit 24 % (35-47); Hemoglobin 8.2 g/dl (12.0-16.0); Lymphocyte % 13.5 % (25-47); Mean Corpuscular HGB Conc 34 g/dl (31-36); Mean Corpuscular Hemoglobin 37 pg (27-31); Mean Corpuscular Volume 108 fL (80-97); Mean Platelet Volume 8.9 um3 (7.4-10.4); Nucleated Red Blood Cells % 0.2; Platelet Count 104 10^3/ul (150-450); Red Cell Distribution Width 16 % (10.5-15); White Blood Count 9.3 10^3/ul (3.5-10.8)
[2018-07-01 05:37] LABS: INR 1.43 (0.77-1.02)
[2018-07-01 05:47] LABS: EGFR Non-African American 111.9 (>60)
[2018-07-01] MEDS: Pantoprazole IV* 40 MG IV SCH (08:52)
--- NOTE | 2018-07-01 09:59 | OP ---
CC: Dr. Fernandez OPERATIVE REPORT: DATE OF OPERATION: 06/30/18. DATE OF : 80. SURGEON: Julius Fernandez MD. BASS SINGER: None. ANESTHESIOLOGIST: None. PRE-OP DIAGNOSIS: Ascites. POST-OP DIAGNOSIS: Ascites. OPERATIVE PROCEDURE: Diagnostic paracentesis with sonography. DESCRIPTION OF PROCEDURE: The patient was supine in the procedure room. All four quadrants were int errogated with the ultrasound and the right lower quadrant seems to have the best fluid pocket. Ther efore, the area was prepped with ChloraPrep, draped in sterile fashion. Local infiltrative anesthesi a was administered and Skinny utility locator needle confirms presence of fluid in this location. A 5-Yemeni catheter was then advanced into the peritoneal space with clear yellow fluid forthcoming. Approxima tely 100 mL of fluid was withdrawn and sent to laboratory for analysis. The analyses are as dictated by the production administrative assistant service and I will accede to their wishes. The catheter was removed. She tolerated this well. Bandage was placed and she will be brought back to her room following the procedure. [id number]/[facility] #: [id number]
[2018-07-01] MEDS ORDERED: Propofol* 10 MG/ML 20 ML BTL IV PUSH ONE (11:32)
[2018-07-01] MEDS ORDERED: fentaNYL* 50 MCG/ML 2 ML VIAL (100 MCG VIAL) ONE (13:03)
[2018-07-01] MEDS ORDERED: Naloxone* 0.4 MG/ML 1 ML VIAL IV PRN (14:22)
[2018-07-01] MEDS: Sucralfate TAB* 1 GM PO SCH ×3 (14:49→21:00)
[2018-07-01] MEDS: Thiamine TAB* 100 MG TAB PO SCH (14:49)
[2018-07-01] MEDS: Multivitamins/Minerals TAB PO SCH (14:49)
[2018-07-01] MEDS: Folic Acid TAB* 1 MG PO SCH (14:50)
[2018-07-01] MEDS: oxyCODONE TAB* 5 MG TAB PO PRN ×2 (15:03→21:00)
--- NOTE | 2018-07-01 15:15 | PN ---
Subjective Date of Service: 07/01/18 Interval History: Patient this morning had persistent abdominal pain and bloating. Patient had a BM which was light brown without blood or dark material. Patient denies F/C, N/V , CP, SOB, dizziness, palpitations, or other alarming symptoms. Family History: Unchanged from Admission Social History: Unchanged from Admission Past Medical History: Unchanged from Admission Objective Active Medications: Folic Acid (Folvite Tab*) 1 mg PO DAILY [facility] Last Admin: 07/01/18 14:50 Dose: 1 mg Octreotide Acetate 500 mcg/ (Sodium Chloride) 101 mls @ 10.1 mls/hr IVPB Q10H [facility] Ceftriaxone Sodium 1 gm/ (Sodium Chloride) 50 mls @ 200 mls/hr IVPB Q24H [facility] Lactulose (Lactulose*) 15 ml PO BID [facility] Lorazepam (Ativan Tab(*)) 0 - 6 mg PO .PER [facility] PROTOCOL [facility]; Protocol Morphine Sulfate (Morphine Vial*) 1 mg IV Q6H PRN PRN Reason: PAIN Multivitamins/Minerals (Theragran/Minerals Tab*) 1 tab PO DAILY [facility] Last Admin: 07/01/18 14:49 Dose: 1 tab Naloxone HCl (Narcan*) 0.08 mg IV Q2M PRN PRN Reason: severe induced resp depression Stop: 07/01/18 18:00 Ondansetron HCl (Zofran Inj*) 4 mg IV Q6H PRN PRN Reason: NAUSEA Last Admin: 06/30/18 06:03 Dose: 4 mg Oxycodone HCl (Roxycodone Tab*) 5 mg PO Q6H PRN PRN Reason: PAIN Last Admin: 07/01/18 15:03 Dose: 5 mg Pantoprazole Sodium (Protonix Iv*) 40 mg IV 0901 [facility] Last Admin: 07/01/18 08:52 Dose: 40 mg Sucralfate (Carafate*) 1 gm PO TID [facility] Last Admin: 07/01/18 14:56 Dose: Not Given Thiamine HCl (Vitamin B-1 Tab*) 100 mg PO DAILY [facility] Last Admin: 07/01/18 14:49 Dose: 100 mg Vital Signs - 8 hr 07/01/18 07/01/18 07/01/18 07:35 08:01 08:02 Temperature 98.0 F Pulse Rate 94 Respiratory 16 16 16 Rate Blood Pressure 109/82 (mmHg) O2 Sat by Pulse 100 Oximetry 07/01/18 07/01/18 07/01/18 08:53 11:20 13:25 Temperature 98.2 F Pulse Rate 86 139 Respiratory 15 18 Rate Blood Pressure 110/68 (mmHg) O2 Sat by Pulse 95 97 Oximetry 07/01/18 07/01/18 07/01/18 13:26 13:30 13:45 Temperature 100.0 F Pulse Rate 162 138 103 Respiratory 22 Rate Blood Pressure 121/87 124/76 115/78 (mmHg) O2 Sat by Pulse 95 95 Oximetry 07/01/18 07/01/18 07/01/18 14:00 14:01 14:15 Temperature Pulse Rate 103 101 93 Respiratory Rate Blood Pressure 106/74 111/71 (mmHg) O2 Sat by Pulse 94 94 93 Oximetry 07/01/18 07/01/18 14:54 15:03 Temperature 97.9 F Pulse Rate 95 Respiratory 16 16 Rate Blood Pressure 101/77 (mmHg) O2 Sat by Pulse 97 Oximetry Oxygen Devices in Use Now: None Appearance: Patient is a 38yo female who is jaundiced, appears stated age and is sitting in the bed in NAD. Eyes: PERRLA, - - Scleral Icterus Ears/Nose/Mouth/Throat: NL Teeth, Lips, Gums, Clear Oropharnyx Neck: NL Appearance and Movements; NL JVP, Trachea Midline Respiratory: Symmetrical Chest Expansion and Respiratory Effort, Clear to Auscultation Cardiovascular: NL Sounds; No Murmurs; No JVD, RRR, No Edema Abdominal: - - Distended, Tender to palpation in epigastric area without rebound or guarding. Hepatomegaly. Lymphatic: No Cervical Adenopathy Extremities: No Edema, No Clubbing, Cyanosis Skin: No Rash or Ulcers, No Nodules or Sclerosis Neurological: Alert and Oriented x 3, NL Sensation, NL Muscle Strength and Tone , - - CN II-XII intact. - Nutrition: Malnutrition Diagnosis/Plan Malnutrition Assessment by Registered Dietitian: Malnutrition Assessment Clinical Characteristics Acute,Severe Malnutrition Assessment: - consumption of only clear liquids x1 wk ( Criteria intake <50% of needs >5 days) - 14.7% wt loss x5 mos (UBW 170lb (01/2018), current wt 145lb) Malnutrition Assessment: 1. continue Zofran and Carafate. Will monitor GI Interventions s/sx for impact on intake. 2. offer Ensure Clear (240kcal, 8g prot) to optimize kcal-protein intake 3. recommend advancing diet to low sodium (and possibly low fat) as able Malnutrition Assessment: Goals 1) Pt will tolerate diet advancement and nutritional supplement w/o development/ exacerbation of GI s/sx 2) Adequate po intake to support lean body mass w/o undesired wt loss/gain 3) Appropriate fluid/electrolyte balance w/ adequate po intake and repletion 4) Abstinence from alcohol Result Diagrams: 07/01/18 05:09 07/01/18 05:09 Additional Lab and Data: Lab Results Microbiology and Other Data: Microbiology 06/30/18 14:30 Gram Stain - Final Ascites Fluid Body Fluid Culture - Preliminary No Growth Day 1 06/29/18 22:40 Urine Culture - Final Urine No Growth (<1,000 CFU/mL) Assess/Plan/Problems-Billing Assessment: Patient is a 38yo female with a PMH for anemia and alcohol abuse who is admitted with epigatric pain and 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 - Patient Problems (1) Decompensated liver disease Current Visit: Yes Status: Acute Code(s): K74.69 - OTHER CIRRHOSIS OF LIVER SNOMED Code(s): 69983806 Comment: - Appreciate GI consult. - Due to Alcoholic hepatitis, Discriminant function 26. - Possible Steroids if no infection by tomorrow. - Monitor daily INR and CMP - Recommended alcohol abstinence. - Start ceftriaxone for prophylaxis of banding. (2) Anemia Current Visit: Yes Status: Acute Code(s): D64.9 - ANEMIA, UNSPECIFIED SNOMED Code(s): 071004951 Comment: - Patient states she has been anemic her whole life - Iron studies consistent with AOCD - Folate and B12 WNL - Possibly alcohol related. - H/H decreased today. EGD without obvious bleeding but varices which were banded and Portal Hypetensive gastropathy - Monitor H/H and start octreotide, continue protonix (3) Alcohol abuse Current Visit: Yes Status: Acute Code(s): F10.10 - ALCOHOL ABUSE, UNCOMPLICATED SNOMED Code(s): 08442904 Comment: - Daily alcohol use and binges on weekends. - Alcohol still elevated at admission - Monitor WAM score and PRN ativan - Vitamins ordered. - No overt signs of alcohol withdrawal at this time. (4) DVT prophylaxis Current Visit: Yes Status: Acute Code(s): QOU5175 - SNOMED Code(s): 521547491 Comment: - SCDs in setting of possible GI bleed. (5) Full code status Current Visit: Yes Status: Acute Code(s): Z78.9 - OTHER SPECIFIED HEALTH STATUS SNOMED Code(s): 078136853 Status and Disposition: Inpatient.
[2018-07-01] MEDS: cefTRIAXone(*) 1 GM in NS 0.9% 50 ML* 50 ML IVPB SCH (15:25)
[2018-07-01] MEDS: Octreotide Acetate* 500 MCG in NS 0.9% 100 ML* 100 ML IVPB SCH (15:46)
[2018-07-01] MEDS: Ondansetron INJ* 2 MG/ML VIAL IV PRN (18:29)
[2018-07-01] MEDS: Lactulose* 15 ML UDC PO SCH (21:01)
[2018-07-02] MEDS: Ondansetron INJ* 2 MG/ML VIAL IV PRN (00:33)
[2018-07-02] MEDS: Morphine VIAL* 4 MG/ML VIAL (1 ml vial) IV PRN ×4 (00:33→19:54)
[2018-07-02] MEDS: Octreotide Acetate* 500 MCG in NS 0.9% 100 ML* 100 ML IVPB SCH ×2 (02:02→13:16)
[2018-07-02] MEDS: oxyCODONE TAB* 5 MG TAB PO PRN ×3 (03:53→17:24)
[2018-07-02 06:28] LABS: INR 1.61 (0.77-1.02)
[2018-07-02 06:30] LABS: ABS Basophils 0.1 10^3/ul (0-0.2); ABS Eosinophils 0.2 10^3/ul (0-0.6); ABS Lymphocytes 1.3 10^3/ul (1.0-4.8); ABS Monocytes 0.5 10^3/ul (0-0.8); ABS Neutrophils 7.2 10^3/ul (1.5-7.7); ABS Nucleated RBC 0 10^3/ul; Eosinophil % 1.7 % (0-6); Hematocrit 28 % (35-47); Hemoglobin 9.5 g/dl (12.0-16.0); Lymphocyte % 14.4 % (25-47); Mean Corpuscular HGB Conc 34 g/dl (31-36); Mean Corpuscular Hemoglobin 37 pg (27-31); Mean Corpuscular Volume 109 fL (80-97); Mean Platelet Volume 9.4 fL (7.4-10.4); Nucleated Red Blood Cells % 0.2; Platelet Count 108 10^3/ul (150-450); Red Blood Count 2.56 10^6/ul (4.00-5.40); Red Cell Distribution Width 16 % (10.5-15); White Blood Count 9.3 10^3/ul (3.5-10.8)
[2018-07-02 06:42] LABS: EGFR Non-African American 114.1 (>60)
[2018-07-02] MEDS ORDERED: predniSONE TAB* 20 MG PO SCH (09:00)
[2018-07-02] MEDS: Thiamine TAB* 100 MG TAB PO SCH (09:16)
[2018-07-02] MEDS: Sucralfate TAB* 1 GM PO SCH ×3 (09:16→20:10)
[2018-07-02] MEDS: Multivitamins/Minerals TAB PO SCH (09:16)
[2018-07-02] MEDS: Folic Acid TAB* 1 MG PO SCH (09:16)
[2018-07-02] MEDS: Lactulose* 15 ML UDC PO SCH ×2 (09:16→20:11)
[2018-07-02] MEDS: Pantoprazole IV* 40 MG IV SCH (11:43)
--- NOTE | 2018-07-02 12:00 | PN ---
Subjective Date of Service: 07/02/18 Interval History: Patient is feeling better today. Patient has had 3 loose bowel movements in the past 24 hours which were dark loose. Patient states her abdominal pain has been improving. Patient denies CP, SOB, N/V, dysuria, oliguria, F/C. Patient feels as if the bloating in her abdomen has improved. Family History: Unchanged from Admission Social History: Unchanged from Admission Past Medical History: Unchanged from Admission Objective Active Medications: Folic Acid (Folvite Tab*) 1 mg PO DAILY [facility] Last Admin: 07/02/18 09:16 Dose: 1 mg Octreotide Acetate 500 mcg/ (Sodium Chloride) 101 mls @ 10.1 mls/hr IVPB Q10H [facility] Last Admin: 07/02/18 02:02 Dose: 10.1 mls/hr Ceftriaxone Sodium 1 gm/ (Sodium Chloride) 50 mls @ 200 mls/hr IVPB Q24H [facility] Last Admin: 07/01/18 15:25 Dose: 200 mls/hr Lactulose (Lactulose*) 15 ml PO BID [facility] Last Admin: 07/02/18 09:16 Dose: 15 ml Lorazepam (Ativan Tab(*)) 0 - 6 mg PO .PER [place] PROTOCOL [facility]; Protocol Morphine Sulfate (Morphine Vial*) 1 mg IV Q6H PRN PRN Reason: PAIN Last Admin: 07/02/18 06:39 Dose: 1 mg Multivitamins/Minerals (Theragran/Minerals Tab*) 1 tab PO DAILY [facility] Last Admin: 07/02/18 09:16 Dose: 1 tab Ondansetron HCl (Zofran Inj*) 4 mg IV Q6H PRN PRN Reason: NAUSEA Last Admin: 07/02/18 00:33 Dose: 4 mg Oxycodone HCl (Roxycodone Tab*) 5 mg PO Q6H PRN PRN Reason: PAIN Last Admin: 07/02/18 10:17 Dose: 5 mg Pantoprazole Sodium (Protonix Iv*) 40 mg IV 0901 [facility] Last Admin: 07/02/18 11:43 Dose: 40 mg Prednisone (Deltasone Tab*) 40 mg PO DAILY [facility] Last Admin: 07/02/18 09:16 Dose: 40 mg Sucralfate (Carafate*) 1 gm PO TID [facility] Last Admin: 07/02/18 09:16 Dose: 1 gm Thiamine HCl (Vitamin B-1 Tab*) 100 mg PO DAILY [facility] Last Admin: 07/02/18 09:16 Dose: 100 mg Vital Signs - 8 hr 07/02/18 07/02/18 07/02/18 03:52 03:53 06:39 Temperature 98.0 F Pulse Rate 96 Respiratory 16 18 20 Rate Blood Pressure 103/71 (mmHg) O2 Sat by Pulse 97 Oximetry 07/02/18 07/02/18 07/02/18 07:00 07:43 08:00 Temperature 98.0 F Pulse Rate 92 Respiratory 16 16 16 Rate Blood Pressure 107/69 (mmHg) O2 Sat by Pulse 96 Oximetry 07/02/18 07/02/18 10:17 11:17 Temperature 98.2 F Pulse Rate 85 Respiratory 18 16 Rate Blood Pressure 104/66 (mmHg) O2 Sat by Pulse 95 Oximetry Oxygen Devices in Use Now: None Appearance: Patient is a 38yo female who is jaundiced, appears older than stated age and is sitting in the bed in NAD. Eyes: PERRLA, - - Scleral Icterus Ears/Nose/Mouth/Throat: NL Teeth, Lips, Gums, Clear Oropharnyx, Mucous Membranes Moist Neck: NL Appearance and Movements; NL JVP, Trachea Midline Respiratory: Symmetrical Chest Expansion and Respiratory Effort, Clear to Auscultation Cardiovascular: NL Sounds; No Murmurs; No JVD, RRR, No Edema Abdominal: - - Tender to palpation without guarding in epigastric area. Mildly distended. Normoactive bowel sounds. Hepatomegaly. Lymphatic: No Cervical Adenopathy Extremities: No Edema, No Clubbing, Cyanosis Skin: No Rash or Ulcers, No Nodules or Sclerosis Neurological: Alert and Oriented x 3, NL Sensation, NL Muscle Strength and Tone , - - CN II-XII intact. - Nutrition: Malnutrition Diagnosis/Plan Malnutrition Assessment by Registered Dietitian: Malnutrition Assessment Clinical Characteristics Acute,Severe Malnutrition Assessment: - consumption of only clear liquids x1 wk ( Criteria intake <50% of needs >5 days) - 14.7% wt loss x5 mos (UBW 170lb (01/2018), current wt 145lb) Malnutrition Assessment: 1. continue Zofran and Carafate. Will monitor GI Interventions s/sx for impact on intake. 2. offer Ensure Clear (240kcal, 8g prot) to optimize kcal-protein intake 3. recommend advancing diet to low sodium (and possibly low fat) as able Malnutrition Assessment: Goals 1) Pt will tolerate diet advancement and nutritional supplement w/o development/ exacerbation of GI s/sx 2) Adequate po intake to support lean body mass w/o undesired wt loss/gain 3) Appropriate fluid/electrolyte balance w/ adequate po intake and repletion 4) Abstinence from alcohol Result Diagrams: 07/02/18 05:50 07/02/18 05:50 Additional Lab and Data: Lab Results Microbiology and Other Data: Microbiology 06/30/18 14:30 Gram Stain - Final Ascites Fluid Body Fluid Culture - Preliminary No Growth Day 1 06/29/18 22:40 Urine Culture - Final Urine No Growth (<1,000 CFU/mL) Assess/Plan/Problems-Billing Assessment: Patient is a 38yo female with a PMH for anemia and alcohol abuse who is admitted with epigatric pain and 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 - Patient Problems (1) Decompensated liver disease Current Visit: Yes Status: Acute Code(s): K74.69 - OTHER CIRRHOSIS OF LIVER SNOMED Code(s): 53711773 Comment: - Appreciate GI consult. - Due to Alcoholic hepatitis, Discriminant function 26. - Start Prednisone 40mg PO daily for 3 weeks - Monitor daily INR and CMP - Recommended alcohol abstinence. - Start ceftriaxone for prophylaxis of banding. (2) Anemia Current Visit: Yes Status: Acute Code(s): D64.9 - ANEMIA, UNSPECIFIED SNOMED Code(s): 937223168 Comment: - Patient states she has been anemic her whole life - Iron studies consistent with AOCD - Folate and B12 WNL - Possibly alcohol related. - H/H improved today. EGD without obvious bleeding but varices which were banded and Portal Hypertensive gastropathy - Monitor H/H and start octreotide, continue protonix. Continue Octreotide for a total of 72Hours. (3) Alcohol abuse Current Visit: Yes Status: Acute Code(s): F10.10 - ALCOHOL ABUSE, UNCOMPLICATED SNOMED Code(s): 19315718 Comment: - Daily alcohol use and binges on weekends. - Alcohol still elevated at admission - Monitor WAM score and PRN ativan - Vitamins ordered. - No overt signs of alcohol withdrawal at this time. (4) DVT prophylaxis Current Visit: Yes Status: Acute Code(s): REC0449 - SNOMED Code(s): 068191496 Comment: - SCDs in setting of possible GI bleed. (5) Full code status Current Visit: Yes Status: Acute Code(s): Z78.9 - OTHER SPECIFIED HEALTH STATUS SNOMED Code(s): 368224032 Status and Disposition: Inpatient.
[2018-07-02] MEDS: cefTRIAXone(*) 1 GM in NS 0.9% 50 ML* 50 ML IVPB SCH (16:03)
--- NOTE | 2018-07-02 23:57 | PRO ---
CC: Jason Venegas NP.* DATE OF PROCEDURE: 07/01/18 - ROOM #342 ADMITTING NURSE PRACTITIONER: Jason Venegas NP PROCEDURE PERFORMED: Esophagogastroduodenoscopy with banding. INDICATION: Epigastric pain, anemia, hepatic dysfunction likely alcoholic hepatitis. MEDICATIONS GIVEN: Please see the anesthesia record. DESCRIPTION OF PROCEDURE: After the EGD procedure including the risks, benefits and alternatives with the risk not limited to perforation surgery, missed lesions and/or were explained to the patient. Written consent was then obtained and a bite block was placed between the teeth. Medication was given by the anesthesia service. The adult Olympus gastroscope was passed through the patient's mouth through the upper esophageal stricture into the tubular esophagus. There was too large count of esophageal varices that did not flatten with insufflation. No high- risk stigmata were visualized or fresh or old blood. Advancing into the stomach, she had extensive portal hypertensive gastroscopy. This did ooze on contact mildly, but there was no overt bleeding that continued. On retroflexion, there were no gastric varices. Advancement through the pylorus into the duodenum revealed a normal duodenal bulb, C-loop, and distal duodenum. The scope was then removed from the patient. The esophageal variceal produce wrapper was placed. The scope was reintroduced and I placed the band at 36 and 35 cm respectively at the 12 and 6 o'clock position with good decompression of both large columns. The scope was then removed from the patient, she tolerated the procedure well. She returned to the recovery room in stable condition. The GE junction was at 37 cm. IMPRESSION: 1. Complete esophagogastroduodenoscopy with variceal bending. 2. Too large columns of esophageal varices banded as above. 3. Extensive portal hypertensive gastropathy. RECOMMENDATIONS: At this time, I start ceftriaxone. Continue to monitor the hemoglobin and hematocrit, would do Sandostatin for a total of 72 hours, then discontinue if the H and H is stable. At this time, her workup for her liver is pending; however, this appears to be strictly alcoholic hepatitis. I extensively discussed with her and her that they both need to completely quit alcohol and it will be more successful if they do that together to give her the best shot. If there is no evidence of infection on 07/02/18, we will consider starting 20 mg of p.o. prednisolone and then check labs in 7 weeks for a low score to see if there is any benefit to continuing steroids at that point. The patient expressed understanding with the need and rationale for the alcohol and the role for her current disease and we will plan on seeing her in the office 1 week after discharge for labs and calculating the low score for her steroids. [id number]/[facility] #: [id number] RAHEEM
[2018-07-03] MEDS: oxyCODONE TAB* 5 MG TAB PO PRN ×4 (00:01→19:11)
[2018-07-03] MEDS: Octreotide Acetate* 500 MCG in NS 0.9% 100 ML* 100 ML IVPB SCH ×4 (00:42→15:46)
[2018-07-03] MEDS: Morphine VIAL* 4 MG/ML VIAL (1 ml vial) IV PRN ×4 (01:37→21:00)
[2018-07-03 06:24] LABS: ABS Basophils 0.1 10^3/ul (0-0.2); ABS Eosinophils 0.1 10^3/ul (0-0.6); ABS Lymphocytes 1.7 10^3/ul (1.0-4.8); ABS Monocytes 0.6 10^3/ul (0-0.8); ABS Neutrophils 8.7 10^3/ul (1.5-7.7); ABS Nucleated RBC 0 10^3/ul; Eosinophil % 0.6 % (0-6); Hematocrit 28 % (35-47); Hemoglobin 9.3 g/dl (12.0-16.0); Lymphocyte % 15.3 % (25-47); Mean Corpuscular HGB Conc 34 g/dl (31-36); Mean Corpuscular Hemoglobin 37 pg (27-31); Mean Corpuscular Volume 110 fL (80-97); Mean Platelet Volume 9.7 fL (7.4-10.4); Nucleated Red Blood Cells % 0.3; Platelet Count 123 10^3/ul (150-450); Red Blood Count 2.52 10^6/ul (4.00-5.40); Red Cell Distribution Width 16 % (10.5-15); White Blood Count 11.1 10^3/ul (3.5-10.8)
[2018-07-03 06:33] LABS: INR 1.69 (0.77-1.02)
[2018-07-03 06:44] LABS: EGFR Non-African American 123.7 (>60)
[2018-07-03] MEDS: Lactulose* 15 ML UDC PO SCH ×2 (08:25→21:00)
[2018-07-03] MEDS: Sucralfate TAB* 1 GM PO SCH ×3 (08:26→21:00)
[2018-07-03] MEDS: Thiamine TAB* 100 MG TAB PO SCH (08:26)
[2018-07-03] MEDS: Multivitamins/Minerals TAB PO SCH (08:26)
[2018-07-03] MEDS: Folic Acid TAB* 1 MG PO SCH (08:26)
[2018-07-03] MEDS: predniSONE TAB* 20 MG PO SCH (08:26)
[2018-07-03] MEDS: Pantoprazole IV* 40 MG IV SCH (09:34)
--- NOTE | 2018-07-03 10:17 | PN ---
Subjective Date of Service: 07/03/18 Interval History: Patient is feeling more bloated today in her abdomen. Patient has stable pain in her epigastric area. Patient has been having small bowel movements which are mostly gas. Patient states the bloating pain in her abdomen is mainly in the later aspects. Patient states she has been having SOB in the AM which resolves quickly. Patient denies F/C, N/V, CP, dizziness, or other pain. Patient is very concerned about her ability to return to work today. Family History: Unchanged from Admission Social History: Unchanged from Admission Past Medical History: Unchanged from Admission Objective Active Medications: Folic Acid (Folvite Tab*) 1 mg PO DAILY [facility] Last Admin: 07/03/18 08:26 Dose: 1 mg Furosemide (Lasix Tab*) 20 mg PO DAILY [facility] Octreotide Acetate 500 mcg/ (Sodium Chloride) 101 mls @ 10.1 mls/hr IVPB Q10H [facility] Stop: 07/04/18 15:00 Last Admin: 07/03/18 08:25 Dose: Not Given Ceftriaxone Sodium 1 gm/ (Sodium Chloride) 50 mls @ 200 mls/hr IVPB Q24H [facility] Last Admin: 07/02/18 16:03 Dose: 200 mls/hr Lactulose (Lactulose*) 15 ml PO BID [facility] Last Admin: 07/03/18 08:25 Dose: 15 ml Morphine Sulfate (Morphine Vial*) 1 mg IV Q6H PRN PRN Reason: PAIN Last Admin: 07/03/18 08:25 Dose: 1 mg Multivitamins/Minerals (Theragran/Minerals Tab*) 1 tab PO DAILY [facility] Last Admin: 07/03/18 08:26 Dose: 1 tab Omeprazole (Prilosec Cap*) 20 mg PO BID [facility] Ondansetron HCl (Zofran Inj*) 4 mg IV Q6H PRN PRN Reason: NAUSEA Last Admin: 07/02/18 00:33 Dose: 4 mg Oxycodone HCl (Roxycodone Tab*) 5 mg PO Q6H PRN PRN Reason: PAIN Last Admin: 07/03/18 07:02 Dose: 5 mg Prednisone (Deltasone Tab*) 20 mg PO DAILY [facility] Last Admin: 07/03/18 08:26 Dose: 20 mg Spironolactone (Aldactone Tab*) 50 mg PO DAILY [facility] Sucralfate (Carafate*) 1 gm PO TID [facility] Last Admin: 07/03/18 08:26 Dose: 1 gm Thiamine HCl (Vitamin B-1 Tab*) 100 mg PO DAILY [facility] Last Admin: 07/03/18 08:26 Dose: 100 mg Vital Signs - 8 hr 07/03/18 07/03/18 07/03/18 03:29 04:17 07:02 Temperature 98.7 F Pulse Rate 76 Respiratory 16 20 Rate Blood Pressure 115/78 (mmHg) O2 Sat by Pulse 97 97 Oximetry 07/03/18 07/03/18 07/03/18 07:04 07:37 08:00 Temperature 97.7 F Pulse Rate 77 Respiratory 20 16 18 Rate Blood Pressure 106/71 (mmHg) O2 Sat by Pulse 96 Oximetry 07/03/18 07/03/18 07/03/18 08:25 09:35 09:36 Temperature Pulse Rate Respiratory 18 18 18 Rate Blood Pressure (mmHg) O2 Sat by Pulse Oximetry Oxygen Devices in Use Now: None Appearance: Patient is a 38yo female who appears stated age, is jaundiced, and is sitting in the bed in [facility]. Eyes: PERRLA, - - Scleral Icterus Ears/Nose/Mouth/Throat: NL Teeth, Lips, Gums, Clear Oropharnyx, Mucous Membranes Moist Neck: NL Appearance and Movements; NL JVP, Trachea Midline Respiratory: Symmetrical Chest Expansion and Respiratory Effort, Clear to Auscultation Cardiovascular: NL Sounds; No Murmurs; No JVD, RRR, No Edema Abdominal: - - Distended, worse than yesterday. Tender to palpation diffusely, worst over epigastric area. Hepatomegaly. Lymphatic: No Cervical Adenopathy Extremities: No Edema, No Clubbing, Cyanosis Skin: No Nodules or Sclerosis, - - Jaundice Neurological: Alert and Oriented x 3, NL Sensation, NL Muscle Strength and Tone , - - No Asterixis. - Nutrition: Malnutrition Diagnosis/Plan Malnutrition Assessment by Registered Dietitian: Malnutrition Assessment Clinical Characteristics Acute,Severe Malnutrition Assessment: - consumption of only clear liquids x1 wk ( Criteria intake <50% of needs >5 days) - 14.7% wt loss x5 mos (UBW 170lb (01/2018), current wt 145lb) Malnutrition Assessment: 1. continue Zofran and Carafate. Will monitor GI Interventions s/sx for impact on intake. 2. offer Ensure Clear (240kcal, 8g prot) to optimize kcal-protein intake 3. recommend advancing diet to low sodium (and possibly low fat) as able Malnutrition Assessment: Goals 1) Pt will tolerate diet advancement and nutritional supplement w/o development/ exacerbation of GI s/sx 2) Adequate po intake to support lean body mass w/o undesired wt loss/gain 3) Appropriate fluid/electrolyte balance w/ adequate po intake and repletion 4) Abstinence from alcohol Result Diagrams: 07/03/18 05:31 07/03/18 05:31 Additional Lab and Data: Lab Results Microbiology and Other Data: Microbiology 06/30/18 14:30 Gram Stain - Final Ascites Fluid Body Fluid Culture - Preliminary No Growth Day 1 06/29/18 22:40 Urine Culture - Final Urine No Growth (<1,000 CFU/mL) Assess/Plan/Problems-Billing Assessment: Patient is a 38yo female with a PMH for anemia and alcohol abuse who is admitted with epigatric pain and 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 - Patient Problems (1) Decompensated liver disease Current Visit: Yes Status: Acute Code(s): K74.69 - OTHER CIRRHOSIS OF LIVER SNOMED Code(s): 82607053 Comment: - Appreciate GI consult. - Due to Alcoholic hepatitis, Discriminant function 26. - Start Prednisone 20mg PO daily for 3 weeks - Monitor daily INR and CMP - Recommended alcohol abstinence. - Ceftriaxone for prophylaxis of banding. No indication for SBP prophylaxis at discharge. - Symptomatic ascites, begin lasix and Spironolactone at 20/50 and monitor cret. (2) Anemia Current Visit: Yes Status: Acute Code(s): D64.9 - ANEMIA, UNSPECIFIED SNOMED Code(s): 441569548 Comment: - Patient states she has been anemic her whole life - Iron studies consistent with AOCD - Folate and B12 WNL - Probably alcohol related. - H/H stable. -EGD without obvious bleeding but varices which were banded and Portal Hypertensive gastropathy - Monitor H/H. Convert to oral PPI therapy. Continue Octreotide for a total of 72Hours. (3) Alcohol abuse Current Visit: Yes Status: Acute Code(s): F10.10 - ALCOHOL ABUSE, UNCOMPLICATED SNOMED Code(s): 23684146 Comment: - Daily alcohol use and binges on weekends. - Alcohol still elevated at admission - No overt signs of alcohol withdrawal at this time. - Discontinue WAM. (4) DVT prophylaxis Current Visit: Yes Status: Acute Code(s): XXJ8885 - SNOMED Code(s): 313030936 Comment: - SCDs in setting of possible GI bleed. (5) Full code status Current Visit: Yes Status: Acute Code(s): Z78.9 - OTHER SPECIFIED HEALTH STATUS SNOMED Code(s): 033180596 Status and Disposition: Inpatient.
[2018-07-03] MEDS: Furosemide TAB* 20 MG PO SCH (10:40)
[2018-07-03] MEDS: Spironolactone TAB* 25 MG PO SCH (10:40)
[2018-07-03] MEDS: cefTRIAXone(*) 1 GM in NS 0.9% 50 ML* 50 ML IVPB SCH (14:52)
[2018-07-03] MEDS: Omeprazole CAP* 20 MG PO SCH (21:00)
[2018-07-04] MEDS: oxyCODONE TAB* 5 MG TAB PO PRN ×3 (01:09→13:29)
[2018-07-04] MEDS: Octreotide Acetate* 500 MCG in NS 0.9% 100 ML* 100 ML IVPB SCH ×2 (02:59→14:21)
[2018-07-04] MEDS: Morphine VIAL* 4 MG/ML VIAL (1 ml vial) IV PRN (03:06)
[2018-07-04 06:06] LABS: INR 1.63 (0.77-1.02)
[2018-07-04 06:13] LABS: ABS Basophils 0.1 10^3/ul (0-0.2); ABS Eosinophils 0.1 10^3/ul (0-0.6); ABS Lymphocytes 1.8 10^3/ul (1.0-4.8); ABS Monocytes 0.7 10^3/ul (0-0.8); ABS Neutrophils 7.3 10^3/ul (1.5-7.7); ABS Nucleated RBC 0 10^3/ul; Eosinophil % 1.2 % (0-6); Hematocrit 28 % (35-47); Hemoglobin 9.4 g/dl (12.0-16.0); Lymphocyte % 18.2 % (25-47); Mean Corpuscular HGB Conc 34 g/dl (31-36); Mean Corpuscular Hemoglobin 37 pg (27-31); Mean Corpuscular Volume 111 fL (80-97); Mean Platelet Volume 9.5 fL (7.4-10.4); Nucleated Red Blood Cells % 0.2; Platelet Count 139 10^3/ul (150-450); Red Blood Count 2.52 10^6/ul (4.00-5.40); Red Cell Distribution Width 17 % (10.5-15); White Blood Count 10.1 10^3/ul (3.5-10.8)
[2018-07-04 06:22] LABS: EGFR Non-African American 114.1 (>60)
[2018-07-04] MEDS: Lactulose* 15 ML UDC PO SCH (08:06)
[2018-07-04] MEDS: Thiamine TAB* 100 MG TAB PO SCH (08:06)
[2018-07-04] MEDS: Furosemide TAB* 20 MG PO SCH (08:07)
[2018-07-04] MEDS: predniSONE TAB* 20 MG PO SCH (08:07)
[2018-07-04] MEDS: Sucralfate TAB* 1 GM PO SCH ×2 (08:07→13:29)
[2018-07-04] MEDS: Folic Acid TAB* 1 MG PO SCH (08:07)
[2018-07-04] MEDS: Omeprazole CAP* 20 MG PO SCH (08:07)
[2018-07-04] MEDS: Spironolactone TAB* 25 MG PO SCH (08:07)
[2018-07-04] MEDS: Multivitamins/Minerals TAB PO SCH (08:08)
[2018-07-04] MEDS ORDERED: Magnesium Sulfate 2 GM IV* 2 GM/50 ML BAG IVPB ONE (10:20)
[2018-07-04] MEDS ORDERED: oxyCODONE TAB* 5 MG TAB PO ONE (10:21)
--- NOTE | 2018-07-04 10:22 | PN ---
Subjective Date of Service: 07/04/18 Interval History: pt reports slightly less abdominal discomfort but still c/o abdominal distention. Reports lots of gas. No fever or chills. Reports soft formed BM. She denies dizziness at rest or with movement. No nausea. tolerating PO Pt would like to go home. She states she and her plan on quitting drinking together. She has no pcp - she states [facility] week. Family History: Unchanged from Admission Social History: Unchanged from Admission Past Medical History: Unchanged from Admission Objective Active Medications: Folic Acid (Folvite Tab*) 1 mg PO DAILY [facility] Last Admin: 07/04/18 08:07 Dose: 1 mg Furosemide (Lasix Tab*) 20 mg PO DAILY [facility] Last Admin: 07/04/18 08:07 Dose: 20 mg Octreotide Acetate 500 mcg/ (Sodium Chloride) 101 mls @ 10.1 mls/hr IVPB Q10H [facility] Stop: 07/04/18 15:00 Last Admin: 07/04/18 02:59 Dose: 10.1 mls/hr Ceftriaxone Sodium 1 gm/ (Sodium Chloride) 50 mls @ 200 mls/hr IVPB Q24H [facility] Last Admin: 07/03/18 14:52 Dose: 200 mls/hr Magnesium Sulfate (Magnesium Sulfate 2 Gm Iv*) 2 gm in 50 mls @ 50 mls/hr IVPB ONCE ONE Stop: 07/04/18 11:19 Lactulose (Lactulose*) 15 ml PO BID [facility] Last Admin: 07/04/18 08:06 Dose: 15 ml Multivitamins/Minerals (Theragran/Minerals Tab*) 1 tab PO DAILY [facility] Last Admin: 07/04/18 08:08 Dose: 1 tab Omeprazole (Prilosec Cap*) 20 mg PO BID [facility] Last Admin: 07/04/18 08:07 Dose: 20 mg Ondansetron HCl (Zofran Inj*) 4 mg IV Q6H PRN PRN Reason: NAUSEA Last Admin: 07/02/18 00:33 Dose: 4 mg Oxycodone HCl (Roxycodone Tab*) 5 mg PO Q6H PRN PRN Reason: PAIN Last Admin: 07/04/18 07:15 Dose: 5 mg Oxycodone HCl (Roxycodone Tab*) 5 mg PO ONCE ONE Stop: 07/04/18 10:22 Prednisone (Deltasone Tab*) 20 mg PO DAILY [facility] Last Admin: 07/04/18 08:07 Dose: 20 mg Spironolactone (Aldactone Tab*) 50 mg PO DAILY [facility] Last Admin: 07/04/18 08:07 Dose: 50 mg Sucralfate (Carafate*) 1 gm PO TID [facility] Last Admin: 07/04/18 08:07 Dose: 1 gm Thiamine HCl (Vitamin B-1 Tab*) 100 mg PO DAILY [facility] Last Admin: 07/04/18 08:06 Dose: 100 mg Vital Signs - 8 hr 07/04/18 07/04/18 07/04/18 03:06 04:37 07:15 Temperature 98.3 F Pulse Rate 80 Respiratory 17 16 16 Rate Blood Pressure 99/58 (mmHg) O2 Sat by Pulse 95 Oximetry 07/04/18 07/04/18 07:24 07:31 Temperature 98.0 F Pulse Rate 88 Respiratory 16 16 Rate Blood Pressure 111/66 (mmHg) O2 Sat by Pulse 95 Oximetry Oxygen Devices in Use Now: None Appearance: 38 yo chornically ill female layong in bed A+O x3 in NAD Eyes: No Scleral Icterus, PERRLA Neck: NL Appearance and Movements; NL JVP Respiratory: Symmetrical Chest Expansion and Respiratory Effort, Clear to Auscultation Cardiovascular: NL Sounds; No Murmurs; No JVD, RRR, No Edema Abdominal: - - distention, nontender, NL BS Extremities: No Edema, No Clubbing, Cyanosis Neurological: Alert and Oriented x 3, NL Sensation, NL Gait, NL Muscle Strength and Tone Lines/Tubes/Other Access: Clean, Dry and Intact Peripheral IV Nutrition: Taking PO's - Nutrition: Malnutrition Diagnosis/Plan Malnutrition Assessment by Registered Dietitian: Malnutrition Assessment Clinical Characteristics Acute,Severe Malnutrition Assessment: - consumption of only clear liquids x1 wk ( Criteria intake <50% of needs >5 days) - 14.7% wt loss x5 mos (UBW 170lb (01/2018), current wt 145lb) Malnutrition Assessment: 1. continue Zofran and Carafate. Will monitor GI Interventions s/sx for impact on intake. 2. offer Ensure Clear (240kcal, 8g prot) to optimize kcal-protein intake 3. recommend advancing diet to low sodium (and possibly low fat) as able Malnutrition Assessment: Goals 1) Pt will tolerate diet advancement and nutritional supplement w/o development/ exacerbation of GI s/sx 2) Adequate po intake to support lean body mass w/o undesired wt loss/gain 3) Appropriate fluid/electrolyte balance w/ adequate po intake and repletion 4) Abstinence from alcohol Result Diagrams: 07/04/18 05:33 07/04/18 05:33 Additional Lab and Data: Lab Results Microbiology and Other Data: Microbiology 06/30/18 14:30 Gram Stain - Final Ascites Fluid Body Fluid Culture - Preliminary No Growth Day 1 06/29/18 22:40 Urine Culture - Final Urine No Growth (<1,000 CFU/mL) Assess/Plan/Problems-Billing Assessment: Patient is a 38yo female with a PMH for anemia and alcohol abuse who is admitted with epigatric pain and apparent new diagnosis of cirrhosis due to alcoholic hepatitis with liver dysfunction. - Patient Problems (1) Decompensated liver disease Comment: - Appreciate GI consult. - Due to Alcoholic hepatitis, Discriminant function 26. - Start Prednisone 20mg PO daily for 3 weeks - Recommended alcohol abstinence. - Ceftriaxone for prophylaxis of banding. No indication for SBP prophylaxis at discharge. - Symptomatic ascites, lasix and Spironolactone at 20/50. - continue lactulose (2) Alcohol abuse Comment: - Daily alcohol use and binges on weekends. - Alcohol still elevated at admission - No signs of alcohol withdrawal during hospiatlization (3) Anemia Comment: - Patient states she has been anemic her whole life - Iron studies consistent with AOCD - Folate and B12 WNL - Probably alcohol related. - H/H stable. - EGD without obvious bleeding but varices which were banded and Portal Hypertensive gastropathy -Octreotide for a total of 72Hours. - Oral PPI therapy. (4) DVT prophylaxis Comment: - SCDs (5) Full code status Current Visit: Yes Status: Acute Code(s): Z78.9 - OTHER SPECIFIED HEALTH STATUS SNOMED Code(s): 354112191 Status and Disposition: Inpatient. Patient is stable for DC to home. [facility] who will call her with a follow up appointment
[2018-07-04] MEDS: cefTRIAXone(*) 1 GM in NS 0.9% 50 ML* 50 ML IVPB SCH (14:45)
[2018-07-04 16:27] VITALS: BP 119/78
--- NOTE | 2018-07-05 20:44 | DS ---
DISCHARGE SUMMARY: DATE OF ADMISSION: 06/30/18 DATE OF DISCHARGE: 07/04/18 ATTENDING PHYSICIAN: Dr. Parry * (report dictated by Max Kaufman NP). PRIMARY CARE PROVIDER: No PCP. The patient is being referred to [facility]. SALES/MARKETING: Ivan Cabral MD DISCHARGE DIAGNOSES: 1. Alcoholic hepatitis. 2. Alcohol abuse. 3. Anemia. 4. Extensive portal hypertensive gastropathy. 5. Esophageal varices with variceal banding. HISTORY OF PRESENT ILLNESS/HOSPITAL COURSE: Please see history and physical Jason Venegas NP for full admission details but in summary, this is a 38-year- old female who previously had no past medical history other than anemia, presenting to the emergency department on 06/30/18 with complaints of epigastric discomfort, nausea and vomiting. She reported for the past several weeks, she has had epigastric discomfort progressively getting worse, noticing that her stomach was becoming more distended and bloated, having a hard time taking a deep breath. She reports she cannot really eat or drink anything because she feels nauseous and then would vomit. She reports a history of drinking 3 beers a day and drinking heavily on the weekends for the past 4 years. On admission, she was noted to have transaminitis with an AST of 383 and ALT of 105 with total bilirubin of 4.20 as well as electrolyte abnormalities with potassium of 2.8, magnesium 1.5, sodium 133 and was found to be anemic with hemoglobin of 8.9 and hematocrit 26. She underwent an abdomen and pelvis CT in the emergency department which showed impression: 1. Diffuse colonic wall thickening which could represent colitis or sequelae of hypoproteinemia. 2. Distended, thickened wall gallbladder with no calcified gallstones which was thought to be possibly secondary to hypoproteinemia but cholecystitis could not be excluded. 3. Moderate ascites. She underwent a gallbladder ultrasound which showed impression: "No shadowing gallstones. Thickened gallbladder measuring 6 mm with layering gallbladder sludge. Hepatitic steatosis and hepatomegaly and ascites." She underwent a diagnostic paracentesis with surgeon Dr. Fernandez who withdrew approximately 100 mL of fluid which was sent to the lab for analysis which was found to have no growth. She was seen in consultation by manager chemistry Dr. Cabral who stated she had decompensated liver disease suspicious for alcoholic hepatitis with a MELD score of 19. Her ultrasound was negative for Budd-Chiari. Recommendation as an outpatient is to undergo a genetic test for hemochromatosis HFE as an outpatient. She underwent an upper endoscopy with Dr. Cabral in which she was found to have extensive portal hypertensive gastropathy and was noted to have too large count of esophageal varices and had an esophageal variceal manager entry placed. There was no overt bleeding noted but it was noted to ooze mildly with contact. The patient was started on ceftriaxone for banding prophylaxis. The patient, as well as her , have been extensively counseled on alcohol cessation. The patient was started on 20 mg of prednisone for alcohol hepatitis after infection was ruled out and will follow up with Dr. Cabral 1 week after discharge. The patient was started on Lasix, spironolactone and lactulose. She was started on oral PPI therapy as well as had 72 hours of octreotide. The patient has had continued abdominal distention which she reports is uncomfortable. This is thought to be secondary to her ascites. She does report that it has gotten less distended throughout her hospitalization. Her urine culture is negative for no growth. Stool for occult blood was positive. Her hemoglobin and hematocrit have remained stable throughout hospitalization. Most likely, the positive stool for occult blood was secondary to slow GI bleeding. She has had no melena. The patient's transaminitis has trended down slightly and on discharge her AST is 186 and her ALT is 71. She was noted to have a low magnesium and has been given supplementation throughout hospitalization and sent home on oral supplementation. Her serum alcohol on admission was 169. The patient has been seen by Social Work and is given resources for outpatient alcohol support. The patient does state at this time that she plans to quit drinking. Her discharge plan was discussed with her by myself and again stressed the importance of abstaining from alcohol. She reports that her plans to quit drinking as well. She agrees to follow up with [facility] and will need to be set up with a primary care provider. DISCHARGE MEDICATIONS: 1. Prednisone 20 mg p.o. daily. 2. Thiamine 100 mg p.o. daily. 3. Carafate 1 g p.o. t.i.d. 4. Spironolactone 50 mg p.o. daily. 5. Omeprazole 20 mg p.o. b.i.d. 6. Multivitamin with mineral 1 tablet p.o. daily. 7. Magnesium oxide 400 mg 1 tab p.o. daily. 8. Lactulose 15 mL p.o. b.i.d., titrate to 1 to 2 soft stools a day. 9. Lasix 20 mg p.o. daily. 10. Folic acid 1 mg p.o. daily. DISCHARGE PLAN: 1. [facility] will call the patient with a followup appointment and she will be set up with a primary care provider. 2. Follow up with Dr. Cabral in 1 week. 3. The patient was instructed to return to the emergency department with any worsening or concerning symptoms. 4. Followup labs this week, Wednesday on 07/06/18 with CBC, CMP, magnesium. TIME SPENT: Approximately 75 minutes were spent on this discharge. MAX KAUFMAN NP [id number]/[facility] #: [id number] RAHEEM
== END 2018-07-04 19:50 | disposition home or self-care (01) | DRG 264 ==
LOC: ED 18:46 → MEDTELE 06-30 03:49 → SSU 06-30 22:39
PROVIDERS: ADMIT Nurse Practitioner Family; ATTEND Internal Medicine
PROC: 0W9G3ZX Drainage of Peritoneal Cavity, Percutaneous Approach, Diagnostic (ICD-10-PCS; principal; 2018-06-30 14:00)
PROC: 0W3P8ZZ Control Bleeding in Gastrointestinal Tract, Via Natural or Artificial Opening Endoscopic (ICD-10-PCS; 2018-07-01)
DX: K70.11 Alcoholic hepatitis with ascites (principal); E43 Unspecified severe protein-calorie malnutrition; I85.11 Secondary esophageal varices with bleeding; K76.6 Portal hypertension; E83.42 Hypomagnesemia; D64.9 Anemia, unspecified; F10.20 Alcohol dependence, uncomplicated; Y90.6 Blood alcohol level of 120-199 mg/100 ml; E87.6 Hypokalemia; K70.31 Alcoholic cirrhosis of liver with ascites; K31.89 Other diseases of stomach and duodenum; F17.211 Nicotine dependence, cigarettes, in remission; Z79.1 Long term (current) use of non-steroidal anti-inflammatories (NSAID); Z82.49 Family history of ischemic heart disease and other diseases of the circulatory system; Z83.438 Family history of other disorder of lipoprotein metabolism and other lipidemia; Z68.22 Body mass index [BMI] 22.0-22.9, adult
CPT/HCPCS: 36415; 74177; 76705; 80053; 80320; 81003; 81015; 82042; 82272; 82607; 82728; 82746; 83540; 83550; 83690; 83735; 84157; 84484; 84702; 85014; 85018; 85025; 85610; 85730; 86140; 87070; 87086; 87205; 88305; 88342; 89051; 93005; 93975; 99284; A9270-GY; G0480; J0696; J2270; J2354; J2405; J2543; J2704; J3010; J3475; J3480; J7512; Q9967

== ENCOUNTER → 2018-08-19 11:31 | Day surgery (SDC) | payer SELFPAY ==
[~2018-08-19 11:31] MED LIST: Buffered Lidocaine 0.9% SYRIN* 5 ML/SYR SYRINGE INTRADERM ONE; Dexamethasone IV* 4 MG/ML 1 ML (4 MG) IV SLOW PU ONE; Dexamethasone IV* 4 MG/ML 1 ML (4 MG) ONE; Famotidine IV* 10 MG/ML 2 ML (20 mg) IV ONE; Famotidine IV* 10 MG/ML 2 ML (20 mg) ONE; Lactated Ringers 1000 ML Bag* 1,000 ML IV SCH; Lidocaine 2% PF * 5 ML VIAL ONE; Naloxone* 0.4 MG/ML 1 ML VIAL IV PRN; Ondansetron INJ* 2 MG/ML VIAL IV PRN; Propofol* 10 MG/ML 20 ML BTL ONE
[2018-08-19 13:43] VITALS: BP 104/75
--- NOTE | 2018-08-20 02:52 | PRO ---
CC: Primary Care Physician (?)* EGD REPORT: DATE OF PROCEDURE: 08/19/18 - ENDO INDICATION FOR PROCEDURE: Alcoholic hepatitis, esophageal varices. PROCEDURE PERFORMED: Complete esophagogastroduodenoscopy. MEDICATIONS GIVEN: Please see anesthesia record. DESCRIPTION OF PROCEDURE: After the EGD procedure, including the risks, benefits, and alternatives, with the risks not limited to perforation, surgery, missed lesions, and/or were explained to the patient, written informed consent was obtained and a bite block was placed between the teeth. The adult Olympus gastroscope was then inserted into the patient's oropharynx and advanced through the oropharynx into the tubular esophagus. She had 1 small column of esophageal varix. This was vastly decreased from prior. This completely deflated with full insufflation. There were no stigmata of recent bleeding or high-risk stigmata visualized. The scope was advanced through the lower esophageal sphincter into the stomach. The stomach had portal hypertensive gastropathy, diffuse. No active oozing or bleeding. On retroflexion, the views were grossly normal. The scope was advanced through the widely patent pylorus into the duodenal bulb, C-loop, and distal duodenum, which were all normal in appearance. Scope was then removed from the patient. She tolerated the procedure well. She returned to the recovery room in stable condition. IMPRESSION: 1. Complete esophagogastroduodenoscopy. 2. Small esophageal varices, completely flattened with insufflation. 3. Portal hypertensive gastropathy. RECOMMENDATIONS: The patient needs to continue to abstain from alcohol. She states that she did have 1 glass of wine 2 weeks ago. I discussed that any further alcohol intake is completely unacceptable and will lead to her demise. Her liver numbers continue to improve. I feel that if she continues to fully abstain from alcohol, she has a good chance of survival; however, if she does relapse, her prognosis will be poor. At this point, her ascites is much improved and her abdomen is almost completely flat today on exam. In addition, her esophageal varices are vastly improved. We will recommend repeating the upper endoscopy in 6 months to ensure complete resolution of varices. She can follow up with me in the office in September. I discussed the need to pursue AA meetings. If she needs any help facilitating this, she can contact our office or the social staff worker. [id number]/[facility] #: [id number] RAHEEM
== END | disposition home or self-care (01) ==
LOC: ENDO 11:31
PROVIDERS: ATTEND Internal Medicine Gastroenterology
DX: I85.00 Esophageal varices without bleeding (principal); K70.10 Alcoholic hepatitis without ascites; K76.6 Portal hypertension; K31.89 Other diseases of stomach and duodenum; F17.210 Nicotine dependence, cigarettes, uncomplicated
CPT/HCPCS: 81025; J1100; J2704

== ENCOUNTER 2019-04-30 12:15 | Emergency (ER) | payer OTHER ==
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
[2019-04-30 13:21] LABS: INR 1.85 (0.82-1.09)
[2019-04-30] MEDS ORDERED: KCL 10 MEQ/50 ML IVPREMIX* 20 MEQ/100 ML BAG ONE (13:28)
[2019-04-30] MEDS: KCL 10 MEQ/50 ML IVPREMIX* 10 MEQ/50 ML BAG IV SCH ×2 (13:28→13:29)
[2019-04-30 13:29] VITALS: BP 132/74
[2019-04-30 13:58] LABS: Urine Benzodiazepine Screen None Detected (None Detect); Urine Opiates Screen None Detected (None Detect)
[2019-04-30 14:02] LABS: Albumin 2.4 g/dL (3.2-5.2); Amylase 102 U/L (29-103); Anion Gap 11 mmol/L (2-11); CO2 Carbon Dioxide 23 mmol/L (22-32); Chloride 99 mmol/L (101-111); Sodium 133 mmol/L (135-145)
[2019-04-30 14:08] LABS: ALT 51 U/L (7-52); AST 218 U/L (13-39); Albumin/Globulin Ratio 0.4 (1-3); Alkaline Phosphatase 81 U/L (34-104); BUN/Creatinine Ratio 13.4 (8-20); Blood Urea Nitrogen 9 mg/dL (6-24); EGFR African American 118.6 (>60); Glucose 98 mg/dL (70-100); Total Protein 8.4 g/dL (6.4-8.9)
[2019-04-30 14:27] LABS: Hematocrit 14 % (35-47); Mean Corpuscular HGB Conc 31 g/dL (31-36); Mean Corpuscular Hemoglobin 26 pg (27-31); Mean Corpuscular Volume 84 fL (80-97); Mean Platelet Volume 8.2 fL (7.4-10.4); Platelet Count 79 10^3/uL (150-450); Red Blood Count 1.63 10^6 /uL (3.70-4.87); Red Cell Distribution Width 23 % (10-15); White Blood Count 9.2 10^3/uL (3.5-10.8)
[2019-04-30 14:29] LABS: HCG Pregnancy < 0.60 mIU/mL; Hemoglobin 4.2 g/dL (12.0-16.0)
[2019-04-30 14:54] LABS: ABS Nucleated RBC 0.1 10^3/ul
[2019-04-30 14:56] LABS: Alcohol < 10 mg/dL (<10)
[2019-04-30 15:03] LABS: ABS Basophils 0.2 10^3/ul (0-0.2)
[2019-04-30 15:06] LABS: Microcytosis 2+; Polychromasia 1+
[2019-04-30 15:14] LABS: Creatine Kinase 2642 U/L (10-223)
[2019-04-30 15:15] LABS: Troponin I 0.07 ng/mL (<0.04)
== END 2019-04-30 13:47 | disposition short-term general hospital (02) ==
LOC: EDBD → ED 12:15 → MERGE 12:15 → ED 13:47
DX: S01.112A Laceration without foreign body of left eyelid and periocular area, initial encounter (principal); R41.82 Altered mental status, unspecified; W01.198A Fall on same level from slipping, tripping and stumbling with subsequent striking against other object, initial encounter; Y92.59 Other trade areas as the place of occurrence of the external cause; Y09 Assault by unspecified means; T14.90XA Injury, unspecified, initial encounter
CPT/HCPCS: 36415; 70450; 70486; 72125; 80053; 80307; 80320; 82140; 82150; 82550; 83605; 83690; 84484; 84702; 85025; 85060; 85610; 86850; 86900; 86901; 93005; 96374; 99285; G0480; J3480

== ENCOUNTER 2019-11-16 19:30 | Inpatient (IN) | payer MEDICAID, OTHER ==
[~2019-11-16 19:30] MED LIST changes: +ACETYLCYSTEINE IV ONE; -Buffered Lidocaine 0.9% SYRIN* 5 ML/SYR SYRINGE INTRADERM ONE; +D5W IV ONE; -Dexamethasone IV* 4 MG/ML 1 ML (4 MG) IV SLOW PU ONE; -Dexamethasone IV* 4 MG/ML 1 ML (4 MG) ONE; -Famotidine IV* 10 MG/ML 2 ML (20 mg) IV ONE; -Famotidine IV* 10 MG/ML 2 ML (20 mg) ONE; -Lactated Ringers 1000 ML Bag* 1,000 ML IV SCH; -Lidocaine 2% PF * 5 ML VIAL ONE; -Naloxone* 0.4 MG/ML 1 ML VIAL IV PRN; -Ondansetron INJ* 2 MG/ML VIAL IV PRN; -Propofol* 10 MG/ML 20 ML BTL ONE
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
[2019-11-16] MEDS ORDERED: cefTRIAXone(*) 1 GM in NS 0.9% 50 ML* 50 ML IVPB ONE (19:40)
[2019-11-16] MEDS ORDERED: NS 0.9% 1000 ML** 1,000 ML IV ONE (19:40)
[2019-11-16] MEDS ORDERED: Pantoprazole IV* 40 MG IV ONE (19:43)
[2019-11-16] MEDS ORDERED: Octreotide Acetate* 500 MCG/ML 1 ML VIAL IV ONE (19:44)
[2019-11-16 20:39] LABS: Hematocrit 20 % (35-47); Hemoglobin 6.9 g/dL (12.0-16.0); Mean Corpuscular HGB Conc 34 g/dL (31-36); Mean Corpuscular Hemoglobin 30 pg (27-31); Mean Corpuscular Volume 87 fL (80-97); Mean Platelet Volume 7.9 fL (7.4-10.4); Platelet Count 92 10^3/uL (150-450); Red Blood Count 2.29 10^6 /uL (3.70-4.87); Red Cell Distribution Width 21 % (10-15)
[2019-11-16 20:46] LABS: INR 1.51 (0.82-1.09)
[2019-11-16 20:47] LABS: ALT 42 U/L (7-52); AST 196 U/L (13-39); Albumin/Globulin Ratio 0.7 (1-3); Alkaline Phosphatase 88 U/L (34-104); Anion Gap 8 mmol/L (2-11); BUN/Creatinine Ratio 23.3 (8-20); Blood Urea Nitrogen 17 mg/dL (6-24); CO2 Carbon Dioxide 27 mmol/L (22-32); Calcium 7.1 mg/dL (8.6-10.3); Chloride 104 mmol/L (101-111); EGFR African American 107.4 (>60); EGFR Non-African American 88.8 (>60); Globulin 4.6 g/dL (2-4); Glucose 109 mg/dL (70-100); Potassium 3.5 mmol/L (3.5-5.0); Sodium 139 mmol/L (135-145); Total Protein 7.6 g/dL (6.4-8.9)
[2019-11-16 20:54] LABS: HCG Pregnancy < 0.60 mIU/mL
[2019-11-16 20:56] LABS: Alcohol 342 mg/dL (<10)
[2019-11-16 20:58] LABS: Acetaminophen 65 mcg/mL
[2019-11-16] MEDS ORDERED: Octreotide Acetate* 500 MCG in NS 0.9% 100 ML* 100 ML IV SCH (21:00)
[2019-11-16] MEDS ORDERED: Pantoprazole* 80 mg IN NS 80 MG/250 ML BAG IV SCH (21:00)
[2019-11-16 21:03] LABS: Polychromasia 1+
[2019-11-16] MEDS ORDERED: ACETYLCYSTEINE IV ONE ×2 (22:00→23:00)
[2019-11-16] MEDS ORDERED: D5W IV ONE ×2 (22:00→23:00)
[2019-11-16] MEDS ORDERED: Octreotide Acetate* 100 MCG/ML 1 ML VIAL IV ONE (22:00)
[2019-11-16] MEDS ORDERED: Thiamine INJ* 100 MG/ML 2 ML VIAL IM ONE (22:08)
[2019-11-16] MEDS ORDERED: Lorazepam PYXIS KEY PRN (22:14)
[2019-11-16] MEDS ORDERED: NS 0.9% 1000 ML** 1,000 ML IV SCH (22:15)
[2019-11-16 22:25] LABS: Activated Partial Thrombo Time 40.4 seconds (26.0-38.0)
[2019-11-16 22:30] LABS: Hematocrit 20 % (35-47); Hemoglobin 6.4 g/dL (12.0-16.0)
[2019-11-16 22:34] LABS: Magnesium 1.8 mg/dL (1.9-2.7)
[2019-11-16] MEDS ORDERED: LORazepam INJ* 2 MG/ML 1 ML VIAL IV PUSH SCH (23:00)
[2019-11-16] MEDS ORDERED: Magnesium Sulfate 2 GM IV* 2 GM/50 ML BAG IVPB ONE (23:01)
[2019-11-16] MEDS: Pantoprazole* 80 mg IN NS 80 MG/250 ML BAG IV SCH (23:41)
[2019-11-16] MEDS: Thiamine INJ* 100 MG in NS 0.9% 50 ML* 50 ML IV SCH (23:42)
[2019-11-16] MEDS: LORazepam INJ* 2 MG/ML 1 ML VIAL IV SCH (23:52)
[2019-11-16] MEDS: Ondansetron INJ* 2 MG/ML VIAL IV PRN (23:55)
[2019-11-16 23:56] LABS: Hepatitis B Surface Antigen Nonreactive (Nonreactive)
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
[2019-11-17] MEDS: Folic Acid IV* 1 MG/0.2 ML SYRINGE IV SCH ×2 (01:32→10:16)
[2019-11-17 02:50] LABS: Hepatitis C Antibody Reactive (Negative)
[2019-11-17] MEDS ORDERED: ACETYLCYSTEINE IV ONE (03:40)
[2019-11-17] MEDS ORDERED: D5W IV ONE (03:40)
[2019-11-17 05:37] LABS: Hematocrit 22 % (35-47); Hemoglobin 7.4 g/dL (12.0-16.0); Mean Corpuscular HGB Conc 33 g/dL (31-36); Mean Corpuscular Hemoglobin 30 pg (27-31); Mean Corpuscular Volume 89 fL (80-97); Mean Platelet Volume 8.3 fL (7.4-10.4); Platelet Count 70 10^3/uL (150-450); Red Cell Distribution Width 17 % (10-15); White Blood Count 6.3 10^3/uL (3.5-10.8)
[2019-11-17 05:55] LABS: Albumin 2.3 g/dL (3.2-5.2); Potassium 4.1 mmol/L (3.5-5.0); Total Bilirubin 3.1 mg/dL (0.2-1.0)
[2019-11-17 06:01] LABS: Albumin/Globulin Ratio 0.7 (1-3); BUN/Creatinine Ratio 26.2 (8-20); EGFR African American 132.1 (>60); EGFR Non-African American 109.2 (>60); Globulin 3.4 g/dL (2-4); Total Protein 5.7 g/dL (6.4-8.9)
[2019-11-17 06:11] LABS: Calcium 6.1 mg/dL (8.6-10.3)
[2019-11-17] MEDS ORDERED: CALCIUM GLUCONATE 1GM/50ML NS 1 GM/50 ML BAG IV ONE (06:19)
[2019-11-17] MEDS: Pantoprazole* 80 mg IN NS 80 MG/250 ML BAG IV SCH ×2 (06:41→17:06)
[2019-11-17] MEDS: Octreotide Acetate* 500 MCG in NS 0.9% 100 ML* 100 ML IV SCH ×2 (06:41→19:02)
[2019-11-17] MEDS: Ondansetron INJ* 2 MG/ML VIAL IV PRN (07:22)
[2019-11-17] MEDS: LORazepam INJ* 2 MG/ML 1 ML VIAL IV SCH ×2 (07:23→16:22)
[2019-11-17] MEDS ORDERED: ACETYLCYSTEINE IV SCH (09:00)
[2019-11-17] MEDS ORDERED: D5W IV SCH (09:00)
[2019-11-17 09:45] LABS: Hematocrit 22 % (35-47); Hemoglobin 7.3 g/dL (12.0-16.0)
[2019-11-17] MEDS ORDERED: Buffered Lidocaine 1% SYRIN* 1 ML/SYRINGE INTRADERM ONE (10:47)
[2019-11-17] MEDS ORDERED: Propofol* 500 MG/50 ML BTL ONE (13:48)
[2019-11-17] MEDS ORDERED: Phenylephrine 40 MCG/ML SYRINGE ONE (13:48)
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
--- NOTE | 2019-11-17 17:04 | PN ---
Progress Note - Progress Note Date of Service: 11/17/19 Note: GI Brief EGD Note: E: 2 columns of moderate varices, with red mia sign. No fresh or old blood. 1 band put over each column with excellent decompression G: Portal hypertensive gastropathy D: Normal Rec: Octreotide x72 hours Closely monitor h/h and metal status. Daily PPI Ceftriaxone ICU until 11/17 as long as mental status remains intact. Finish NAC course Ivan Cabral DO 11/17/19 1500
[2019-11-17] MEDS: cefTRIAXone(*) 1 GM in NS 0.9% 50 ML* 50 ML IVPB SCH (17:06)
[2019-11-17 17:31] LABS: ALT 34 U/L (7-52); AST 145 U/L (13-39); Albumin 2.2 g/dL (3.2-5.2); Albumin/Globulin Ratio 0.6 (1-3); Alkaline Phosphatase 58 U/L (34-104); Globulin 3.4 g/dL (2-4); Indirect Bilirubin 2.6 mg/dL (0.3-1.0); Total Protein 5.6 g/dL (6.4-8.9)
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
[2019-11-17 17:56] LABS: Acetaminophen < 15 mcg/mL
[2019-11-17] MEDS: NS 0.9% 1000 ML** 1,000 ML IV SCH (19:46)
[2019-11-17] MEDS: Thiamine INJ* 100 MG in NS 0.9% 50 ML* 50 ML IV SCH (23:01)
[2019-11-18] MEDS: LORazepam INJ* 2 MG/ML 1 ML VIAL IV SCH ×3 (00:02→16:06)
[2019-11-18] MEDS: Pantoprazole* 80 mg IN NS 80 MG/250 ML BAG IV SCH ×2 (04:22→14:33)
[2019-11-18] MEDS: Octreotide Acetate* 500 MCG in NS 0.9% 100 ML* 100 ML IV SCH (04:25)
[2019-11-18] MEDS ORDERED: Acetaminophen TAB* 325 MG PO PRN (07:39)
[2019-11-18] MEDS: Folic Acid IV* 1 MG in NS 0.9% 50 ML* 50 ML IVPB SCH (09:25)
[2019-11-18] MEDS: NS 0.9% 1000 ML** 1,000 ML IV SCH (09:32)
[2019-11-18 10:02] LABS: ABS Basophils 0.1 10^3/ul (0-0.2); ABS Eosinophils 0.3 10^3/ul (0-0.6); ABS Lymphocytes 1.5 10^3/ul (1.0-4.8); ABS Monocytes 0.6 10^3/ul (0-0.8); ABS Neutrophils 4.6 10^3/ul (1.5-7.7); Eosinophil % 4.3 %; Hematocrit 21 % (35-47); Mean Corpuscular HGB Conc 34 g/dL (31-36); Mean Corpuscular Hemoglobin 31 pg (27-31); Mean Corpuscular Volume 89 fL (80-97); Mean Platelet Volume 8.2 fL (7.4-10.4); Nucleated Red Blood Cells % 0.5; Platelet Count 52 10^3/uL (150-450); Red Cell Distribution Width 17 % (10-15)
[2019-11-18 10:03] LABS: INR 1.76 (0.82-1.09)
[2019-11-18 10:18] LABS: Albumin 2.2 g/dL (3.2-5.2); Albumin/Globulin Ratio 0.7 (1-3); BUN/Creatinine Ratio 17.4 (8-20); Calcium 6.7 mg/dL (8.6-10.3); EGFR African American 114.6 (>60); EGFR Non-African American 94.7 (>60); Globulin 3.3 g/dL (2-4); Magnesium 1.7 mg/dL (1.9-2.7); Potassium 3.6 mmol/L (3.5-5.0); Total Bilirubin 3.8 mg/dL (0.2-1.0); Total Protein 5.5 g/dL (6.4-8.9)
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
[2019-11-18 14:13] LABS: Hematocrit 20 % (35-47); Hemoglobin 6.7 g/dL (12.0-16.0); Mean Corpuscular HGB Conc 34 g/dL (31-36); Mean Corpuscular Hemoglobin 30 pg (27-31); Mean Corpuscular Volume 89 fL (80-97); Mean Platelet Volume 8.4 fL (7.4-10.4); Platelet Count 50 10^3/uL (150-450); Red Cell Distribution Width 17 % (10-15); White Blood Count 6.2 10^3/uL (3.5-10.8)
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
[2019-11-18] MEDS: cefTRIAXone(*) 1 GM in NS 0.9% 50 ML* 50 ML IVPB SCH (18:26)
[2019-11-18 22:08] LABS: Hematocrit 25 % (35-47); Hemoglobin 8.5 g/dL (12.0-16.0)
[2019-11-19] MEDS: Thiamine INJ* 100 MG in NS 0.9% 50 ML* 50 ML IV SCH (00:03)
[2019-11-19] MEDS: Pantoprazole* 80 mg IN NS 80 MG/250 ML BAG IV SCH ×2 (02:53→10:43)
[2019-11-19] MEDS: LORazepam INJ* 2 MG/ML 1 ML VIAL IV SCH ×2 (04:46→17:31)
[2019-11-19 05:42] LABS: ABS Eosinophils 0.2 10^3/ul (0-0.6); ABS Lymphocytes 0.6 10^3/ul (1.0-4.8); ABS Monocytes 0.8 10^3/ul (0-0.8); ABS Neutrophils 7.2 10^3/ul (1.5-7.7); ABS Nucleated RBC 0.1 10^3/ul; Eosinophil % 2.3 %; Hematocrit 25 % (35-47); Hemoglobin 8.7 g/dL (12.0-16.0); Mean Corpuscular HGB Conc 34 g/dL (31-36); Mean Corpuscular Hemoglobin 30 pg (27-31); Mean Corpuscular Volume 88 fL (80-97); Nucleated Red Blood Cells % 0.8; Platelet Count 59 10^3/uL (150-450); Red Cell Distribution Width 16 % (10-15); White Blood Count 8.8 10^3/uL (3.5-10.8)
[2019-11-19 05:43] LABS: INR 1.78 (0.82-1.09)
[2019-11-19 05:56] LABS: ALT 31 U/L (7-52); AST 131 U/L (13-39); Albumin 2.3 g/dL (3.2-5.2); Albumin/Globulin Ratio 0.6 (1-3); Alkaline Phosphatase 63 U/L (34-104); Anion Gap 5 mmol/L (2-11); BUN/Creatinine Ratio 11.8 (8-20); Blood Urea Nitrogen 8 mg/dL (6-24); CO2 Carbon Dioxide 24 mmol/L (22-32); Calcium 7.2 mg/dL (8.6-10.3); Chloride 104 mmol/L (101-111); EGFR African American 116.6 (>60); EGFR Non-African American 96.3 (>60); Globulin 3.7 g/dL (2-4); Glucose 101 mg/dL (70-100); Magnesium 1.4 mg/dL (1.9-2.7); Potassium 3.3 mmol/L (3.5-5.0); Sodium 133 mmol/L (135-145)
[2019-11-19 06:11] LABS: Phosphorus < 1.0 mg/dL (2.5-5.0)
[2019-11-19] MEDS ORDERED: Potassium Phosphate IV* 20 MMOLE in NS 0.9% 250 ML* 250 ML IVPB ONE (06:23)
[2019-11-19] MEDS ORDERED: Potassium Chlor TAB* 20 MEQ TAB.ER PO ONE (06:24)
[2019-11-19] MEDS ORDERED: Magnesium Sulf 4 GM/100 ML IV* 4,000 MG/100 ML BAG IVPB ONE (06:24)
[2019-11-19] MEDS: Morphine INJ* 2 MG/ML 1 ML SYRINGE (TWO MG - NEW SYRINGE VERSION) IV PRN ×3 (07:50→20:57)
[2019-11-19] MEDS: Folic Acid IV* 1 MG in NS 0.9% 50 ML* 50 ML IVPB SCH (08:27)
[2019-11-19] MEDS ORDERED: Acetaminophen TAB* 325 MG PO PRN (10:10)
[2019-11-19 11:11] LABS: Urine Appearance Clear; Urine Bacteria Absent (Absent); Urine Bilirubin Negative (Negative); Urine Blood 1+ (Negative); Urine Color Amber; Urine Glucose Negative (Negative); Urine Ketones Trace (Negative); Urine Nitrite Negative (Negative); Urine Protein Negative (Negative); Urine Red Blood Cell 1+(3-5/hpf) (Absent); Urine Specific Gravity 1.018 (1.010-1.030); Urine Squamous Epithelial Cell Present (Absent); Urine Urobilinogen Positive (Negative); Urine White Blood Cell Trace(0-5/hpf) (Absent)
[2019-11-19 13:31] LABS: BUN/Creatinine Ratio 10.6 (8-20); EGFR African American 120.6 (>60); EGFR Non-African American 99.7 (>60); Magnesium 2.3 mg/dL (1.9-2.7); Phosphorus 1.9 mg/dL (2.5-5.0); Potassium 3.6 mmol/L (3.5-5.0)
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
[2019-11-19] MEDS ORDERED: cefoTAXime (*) (NF) 2 GM VIAL IVPB SCH (16:00)
[2019-11-19] MEDS: Pantoprazole IV* 40 MG IV SCH (16:51)
[2019-11-19] MEDS: cefTRIAXone(*) 1 GM in NS 0.9% 50 ML* 50 ML IVPB SCH (16:52)
[2019-11-19] MEDS ORDERED: cefTRIAXone VIAL(*) 500 MG in NS 0.9% 50 ML* 50 ML IVPB SCH (17:00)
[2019-11-19] MEDS ORDERED: Calcium Gluconate INJ* 2 GM in NS 0.9% 100 ML* 100 ML IV ONE (17:58)
[2019-11-19] MEDS ORDERED: Potassium Phosphate IV* 10 MMOLE in NS 0.9% 250 ML* 250 ML IVPB ONE (18:50)
[2019-11-19] MEDS: Octreotide Acetate* 500 MCG in NS 0.9% 100 ML* 100 ML IV SCH (19:55)
[2019-11-20] MEDS: LORazepam INJ* 2 MG/ML 1 ML VIAL IV SCH ×2 (04:03→16:16)
[2019-11-20] MEDS: Octreotide Acetate* 500 MCG in NS 0.9% 100 ML* 100 ML IV SCH ×2 (05:55→16:23)
[2019-11-20 06:26] LABS: ABS Basophils 0.1 10^3/ul (0-0.2); ABS Eosinophils 0.2 10^3/ul (0-0.6); ABS Lymphocytes 1.4 10^3/ul (1.0-4.8); ABS Monocytes 0.7 10^3/ul (0-0.8); ABS Neutrophils 4.3 10^3/ul (1.5-7.7); Eosinophil % 2.4 %; Hematocrit 24 % (35-47); Hemoglobin 8.3 g/dL (12.0-16.0); Lymphocyte % 20.9 %; Mean Corpuscular HGB Conc 35 g/dL (31-36); Mean Corpuscular Hemoglobin 31 pg (27-31); Mean Corpuscular Volume 89 fL (80-97); Mean Platelet Volume 8.4 fL (7.4-10.4); Nucleated Red Blood Cells % 0.2; Platelet Count 61 10^3/uL (150-450); Red Blood Count 2.69 10^6 /uL (3.70-4.87); Red Cell Distribution Width 16 % (10-15); White Blood Count 6.6 10^3/uL (3.5-10.8)
[2019-11-20 06:30] LABS: INR 1.89 (0.82-1.09)
[2019-11-20 06:40] LABS: Albumin 2.2 g/dL (3.2-5.2); Albumin/Globulin Ratio 0.6 (1-3); BUN/Creatinine Ratio 7.5 (8-20); Calcium 6.9 mg/dL (8.6-10.3); EGFR African American 118.6 (>60); Globulin 3.4 g/dL (2-4); Phosphorus 2.6 mg/dL (2.5-5.0); Potassium 3.7 mmol/L (3.5-5.0); Total Bilirubin 3.3 mg/dL (0.2-1.0); Total Protein 5.6 g/dL (6.4-8.9)
[2019-11-20] MEDS: Ibuprofen TAB* 600 MG PO PRN (07:50)
[2019-11-20] MEDS: Morphine INJ* 2 MG/ML 1 ML SYRINGE (TWO MG - NEW SYRINGE VERSION) IV PRN (07:51)
[2019-11-20] MEDS ORDERED: CALCIUM GLUCONATE 1GM/50ML NS 1 GM/50 ML BAG IV ONE (08:15)
[2019-11-20] MEDS ORDERED: Influenza VAC *QUAD* 2019-20* 0.5 ML SYRINGE IM ONE (09:00)
[2019-11-20] MEDS: Folic Acid TAB* 1 MG PO SCH (09:42)
[2019-11-20] MEDS: Thiamine TAB* 100 MG TAB PO SCH (09:42)
[2019-11-20] MEDS: Multivitamins/Minerals TAB PO SCH (09:42)
--- NOTE | 2019-11-20 12:25 | PN ---
Progress Note - Progress Note Date of Service: 11/20/19 Note: GI fu doing better, no GI complaints, no bm yet today, no s/s bleeding, no vomiting, alert, knows person, place and time VS:98.3, 124/76, 91 nad, alert, oriented x 3 neuro: no asterixis +bs, soft, nt/nd skin: brusing RRR, no m lungs: CTA bilat hgb 8.3<----8.7, plts 61, inr 1.89<----1.78 bili 3.3<-----4.1 Cirrhosis no HSE, no overt ascites, +varices....no s/s bleeding continue close monitoring, GI will follow [employer] mD
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
[2019-11-20] MEDS: Pantoprazole IV* 40 MG IV SCH (16:11)
[2019-11-20] MEDS: cefTRIAXone(*) 1 GM in NS 0.9% 50 ML* 50 ML IVPB SCH (16:18)
[2019-11-21 05:02] LABS: Albumin 2.2 g/dL (3.2-5.2); Albumin/Globulin Ratio 0.6 (1-3); BUN/Creatinine Ratio 9.4 (8-20); Calcium 7.4 mg/dL (8.6-10.3); EGFR Non-African American 103.3 (>60); Globulin 3.9 g/dL (2-4); Potassium 3.9 mmol/L (3.5-5.0); Total Bilirubin 3.5 mg/dL (0.2-1.0); Total Protein 6.1 g/dL (6.4-8.9)
[2019-11-21 05:05] LABS: Hematocrit 24 % (35-47); Hemoglobin 8.2 g/dL (12.0-16.0); Mean Corpuscular HGB Conc 34 g/dL (31-36); Mean Corpuscular Hemoglobin 31 pg (27-31); Mean Corpuscular Volume 90 fL (80-97); Mean Platelet Volume 8.8 fL (7.4-10.4); Nucleated Red Blood Cells % 0.2; Platelet Count 67 10^3/uL (150-450); Red Blood Count 2.64 10^6 /uL (3.70-4.87); Red Cell Distribution Width 17 % (10-15); White Blood Count 6.7 10^3/uL (3.5-10.8)
[2019-11-21 05:36] LABS: Polychromasia 1+
[2019-11-21] MEDS: Multivitamins/Minerals TAB PO SCH (09:45)
[2019-11-21] MEDS: Ibuprofen TAB* 600 MG PO PRN ×2 (09:45→15:49)
[2019-11-21] MEDS: Folic Acid TAB* 1 MG PO SCH (09:45)
[2019-11-21] MEDS: Thiamine TAB* 100 MG TAB PO SCH (09:45)
[2019-11-21] MEDS: Simethicone TAB* 80 MG TAB.CHEW PO PRN (10:26)
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
[2019-11-21 13:27] LABS: Body Fluid Source Peritonial Fluid
[2019-11-21 15:03] LABS: Body Fluid Mono 75 %; Body Fluid Other Cells 63
[2019-11-21] MEDS: Pantoprazole IV* 40 MG IV SCH (15:51)
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
[2019-11-21] MEDS: cefTRIAXone(*) 1 GM in NS 0.9% 50 ML* 50 ML IVPB SCH (17:09)
[2019-11-21] MEDS: Morphine INJ* 2 MG/ML 1 ML SYRINGE (TWO MG - NEW SYRINGE VERSION) IV PRN (20:19)
[2019-11-22 06:29] LABS: Hematocrit 24 % (35-47); Hemoglobin 8.2 g/dL (12.0-16.0); Mean Corpuscular HGB Conc 34 g/dL (31-36); Mean Corpuscular Hemoglobin 31 pg (27-31); Mean Corpuscular Volume 90 fL (80-97); Mean Platelet Volume 7.9 fL (7.4-10.4); Platelet Count 80 10^3/uL (150-450); Red Blood Count 2.68 10^6 /uL (3.70-4.87); Red Cell Distribution Width 17 % (10-15); White Blood Count 5.7 10^3/uL (3.5-10.8)
[2019-11-22 06:38] LABS: Albumin 2.3 g/dL (3.2-5.2); Albumin/Globulin Ratio 0.6 (1-3); BUN/Creatinine Ratio 11.1 (8-20); Calcium 7.5 mg/dL (8.6-10.3); EGFR African American 127.3 (>60); EGFR Non-African American 105.2 (>60); Globulin 3.9 g/dL (2-4); Potassium 3.8 mmol/L (3.5-5.0); Total Bilirubin 3.8 mg/dL (0.2-1.0); Total Protein 6.2 g/dL (6.4-8.9)
[2019-11-22 07:19] LABS: Polychromasia 1+
[2019-11-22 07:22] LABS: ABS Eosinophils 0.4 10^3/ul (0-0.6)
[2019-11-22] MEDS: Folic Acid TAB* 1 MG PO SCH (08:51)
[2019-11-22] MEDS: Thiamine TAB* 100 MG TAB PO SCH (08:51)
[2019-11-22] MEDS: Multivitamins/Minerals TAB PO SCH (08:51)
[2019-11-22] MEDS: Ibuprofen TAB* 600 MG PO PRN (11:17)
[2019-11-22 12:43] LABS: Lactate Dehydrogenase, BF 42 U/L
[2019-11-22] MEDS: Morphine INJ* 2 MG/ML 1 ML SYRINGE (TWO MG - NEW SYRINGE VERSION) IV PRN ×2 (13:07→18:22)
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
[2019-11-22] MEDS ORDERED: Zosyn per Pharmacy* NOTE FOLLOW UP SCH (16:00)
[2019-11-22] MEDS ORDERED: Piperacillin/Tazobac ADVAN(*) 3.375 GM in NS 0.9% 100 ML* 100 ML IVPB ONE (16:00)
[2019-11-22 16:03] LABS: Fluid Type, Protein, Total PERITONEAL
[2019-11-22 16:04] LABS: Fluid Type, Albumin PERITONEAL
[2019-11-22] MEDS: Pantoprazole IV* 40 MG IV SCH (17:38)
[2019-11-22] MEDS: ZOSYN 3.375 GM Q8H per EXTENDED INFUSION IVPB SCH ×2 (22:01)
[2019-11-23] MEDS: ZOSYN 3.375 GM Q8H per EXTENDED INFUSION IVPB SCH ×6 (06:16→21:40)
[2019-11-23 06:23] LABS: Hematocrit 22 % (35-47); Hemoglobin 7.6 g/dL (12.0-16.0); Mean Corpuscular HGB Conc 35 g/dL (31-36); Mean Corpuscular Hemoglobin 31 pg (27-31); Mean Corpuscular Volume 89 fL (80-97); Mean Platelet Volume 8.1 fL (7.4-10.4); Platelet Count 91 10^3/uL (150-450); Red Blood Count 2.44 10^6 /uL (3.70-4.87); Red Cell Distribution Width 18 % (10-15)
[2019-11-23 06:32] LABS: BUN/Creatinine Ratio 9.5 (8-20); Calcium 7.4 mg/dL (8.6-10.3); EGFR African American 127.3 (>60); EGFR Non-African American 105.2 (>60); Potassium 3.9 mmol/L (3.5-5.0)
[2019-11-23 07:34] LABS: Polychromasia 1+
[2019-11-23 07:36] LABS: Nucleated Red Blood Cells % 0.1
[2019-11-23] MEDS: Ibuprofen TAB* 600 MG PO PRN ×2 (08:06→17:19)
[2019-11-23] MEDS: Morphine INJ* 2 MG/ML 1 ML SYRINGE (TWO MG - NEW SYRINGE VERSION) IV PRN ×4 (08:06→21:40)
[2019-11-23] MEDS: Multivitamins/Minerals TAB PO SCH (08:07)
[2019-11-23] MEDS: Folic Acid TAB* 1 MG PO SCH (08:07)
[2019-11-23] MEDS: Thiamine TAB* 100 MG TAB PO SCH (08:07)
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
[2019-11-23] MEDS: Pantoprazole IV* 40 MG IV SCH (17:19)
[2019-11-24] MEDS: Morphine INJ* 2 MG/ML 1 ML SYRINGE (TWO MG - NEW SYRINGE VERSION) IV PRN ×7 (00:49→21:00)
[2019-11-24] MEDS: ZOSYN 3.375 GM Q8H per EXTENDED INFUSION IVPB SCH ×4 (05:50→15:17)
[2019-11-24 06:09] LABS: Polychromasia 1+
[2019-11-24 06:10] LABS: Burr Cells 2+; Hematocrit 21 % (35-47); Hemoglobin 7.1 g/dL (12.0-16.0); Mean Corpuscular HGB Conc 34 g/dL (31-36); Mean Corpuscular Hemoglobin 31 pg (27-31); Mean Corpuscular Volume 90 fL (80-97); Mean Platelet Volume 7.9 fL (7.4-10.4); Platelet Count 113 10^3/uL (150-450); Red Blood Count 2.32 10^6 /uL (3.70-4.87); Red Cell Distribution Width 19 % (10-15); White Blood Count 4.9 10^3/uL (3.5-10.8)
[2019-11-24 06:36] LABS: ABS Basophils 0.1 10^3/ul (0-0.2); ABS Eosinophils 0.2 10^3/ul (0-0.6)
[2019-11-24] MEDS: Thiamine TAB* 100 MG TAB PO SCH (07:59)
[2019-11-24] MEDS: Multivitamins/Minerals TAB PO SCH (07:59)
[2019-11-24] MEDS: Folic Acid TAB* 1 MG PO SCH (07:59)
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
[2019-11-24] MEDS: Pantoprazole IV* 40 MG IV SCH (15:17)
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
[2019-11-24] MEDS: Amoxicillin/Clavulanate TAB* 875 MG PO SCH (21:01)
[2019-11-25] MEDS: Morphine INJ* 2 MG/ML 1 ML SYRINGE (TWO MG - NEW SYRINGE VERSION) IV PRN ×2 (01:20→06:10)
[2019-11-25 05:45] LABS: Hematocrit 24 % (35-47); Hemoglobin 7.7 g/dL (12.0-16.0); Mean Corpuscular HGB Conc 33 g/dL (31-36); Mean Corpuscular Hemoglobin 30 pg (27-31); Mean Corpuscular Volume 92 fL (80-97); Mean Platelet Volume 8.1 fL (7.4-10.4); Platelet Count 144 10^3/uL (150-450); Red Blood Count 2.56 10^6 /uL (3.70-4.87); Red Cell Distribution Width 19 % (10-15); White Blood Count 6.4 10^3/uL (3.5-10.8)
[2019-11-25] MEDS: Simethicone TAB* 80 MG TAB.CHEW PO PRN (06:10)
[2019-11-25 06:13] LABS: Burr Cells 1+; Polychromasia 1+
[2019-11-25 06:17] LABS: ABS Basophils 0.1 10^3/ul (0-0.2); ABS Eosinophils 0.1 10^3/ul (0-0.6)
[2019-11-25] MEDS: Multivitamins/Minerals TAB PO SCH (08:39)
[2019-11-25] MEDS: Thiamine TAB* 100 MG TAB PO SCH (08:39)
[2019-11-25] MEDS: Amoxicillin/Clavulanate TAB* 875 MG PO SCH (08:39)
[2019-11-25] MEDS: Folic Acid TAB* 1 MG PO SCH (08:39)
[2019-11-25] MEDS: Ibuprofen TAB* 600 MG PO PRN (08:39)
--- NOTE | 2019-11-25 08:54 | PN ---
Progress Note - Progress Note Date of Service: 11/25/19 SOAP: Subjective: Pt seen at bedside today for left knee hematoma. Pt has been getting IV abx and tolerating them well. States that pain in her leg is very slowly improving. Denies paresthesias or numbness today. Denies f/c. Objective: Vital Signs: Temp Pulse Resp BP Pulse Ox 99 F 101 18 108/59 96 11/25/19 07:15 11/25/19 07:15 11/25/19 08:42 11/25/19 07:15 11/25/19 07:15 Gen: A&O x3, NAD at rest laying in bed LLE: Persistent large infrapatellar hematoma with dry scabs present. Still with erythema and TTP but improving. Able to flex knee to 90 deg with minimal pain, full extension. +f/e at ankle and MTPs, N/V intact Assessment: Left knee hematoma Plan: Cont abx for possible infected hematoma/cellulitis F/u with orthopedics as outpt 10-14 days after d/c.
[2019-11-25 12:37] VITALS: BP 102/52
--- NOTE | 2019-12-06 13:17 | PRO ---
[facility] DATE OF PROCEDURE: 11/17/2019. INDICATION FOR PROCEDURE: Hemoptysis, cirrhosis. PROCEDURE PERFORMED: Complete esophagogastroduodenoscopy with banding. MEDICATIONS GIVEN: Please see anesthesia record. DESCRIPTION OF PROCEDURE: After the EGD procedure, including the risks, benefits, and alternatives, with the risks not limited to perforation, surgery, missed lesions, and/or were explained to th e patient, written informed consent was obtained. IV medication was given and a bite-block was place d between the teeth. The adult Olympus gastroscope was then inserted into the patient's oropharynx in to the tubular esophagus. The esophagus has two columns of moderate varices. The two columns at the distal end did have a red mia sign. No fresh oral blood, but these were high risk stigmata and a b and was placed over each with excellent decompression. No bleeding was noted after. The scope was a dvanced through the lower esophageal sphincter into the stomach. The stomach has had diffuse portal hypertensive gastropathy. On retroflexion, no gastric varices were seen. The scope was then advance d through a widely patent pylorus into the duodenal bulb, C- loop and distal duodenum. These were no rmal in appearance. The scope was then removed from the patient. She tolerated the procedure well. She returned to the recovery room in stable condition. IMPRESSION: 1. Complete esophagogastroduodenoscopy with banding. 2. Two moderate columns of esophageal varices with red mia signs which are high risk stigmata. One band was placed over each with excellent decompression. 3. Portal hypertensive gastropathy. RECOMMENDATIONS: This likely was a variceal bleed. Her varices have been decompressed adequately wi th the two bands. She will need a repeat EGD in roughly four to eight weeks. This will be done thro [facility] as she is establishing with a entry level management there due to insurance. I recommend Oct reotide for 72 hours. Keep an eye on her H and H and mental status. Finish off the NAC course given the elevated Tylenol level on admission. Keep in the ICU for another day as long as her mental statu s remains intact. Start IV Ceftriaxone given the GI bleed. Recommend a daily PPI therapy at this poi nt given the small erosive esophagitis accompanying it. The patient needs to absolutely abstain from alcohol and despite abstaining from alcohol has a high risk of mortality. [id number]/[facility] #: [id number]
== END 2019-11-25 13:23 | disposition home or self-care (01) | DRG 264 ==
LOC: ED 19:30 → ICU 22:09 → MEDTELE 11-18 15:15
PROVIDERS: ADMIT Internal Medicine; ATTEND Internal Medicine
PROC: 06L38CZ Occlusion of Esophageal Vein with Extraluminal Device, Via Natural or Artificial Opening Endoscopic (ICD-10-PCS; 2019-11-16)
PROC: 30233N1 Transfusion of Nonautologous Red Blood Cells into Peripheral Vein, Percutaneous Approach (ICD-10-PCS; 2019-11-16)
PROC: 0W9G3ZX Drainage of Peritoneal Cavity, Percutaneous Approach, Diagnostic (ICD-10-PCS; principal; 2019-11-21)
DX: K70.40 Alcoholic hepatic failure without coma (principal); I85.11 Secondary esophageal varices with bleeding; J69.0 Pneumonitis due to inhalation of food and vomit; F10.239 Alcohol dependence with withdrawal, unspecified; K76.6 Portal hypertension; D62 Acute posthemorrhagic anemia; D61.818 Other pancytopenia; K70.31 Alcoholic cirrhosis of liver with ascites; T39.1X1A Poisoning by 4-Aminophenol derivatives, accidental (unintentional), initial encounter; F17.210 Nicotine dependence, cigarettes, uncomplicated; K70.11 Alcoholic hepatitis with ascites; B19.20 Unspecified viral hepatitis C without hepatic coma; R00.0 Tachycardia, unspecified; D64.9 Anemia, unspecified; K31.89 Other diseases of stomach and duodenum; Z79.899 Other long term (current) drug therapy; Y92.9 Unspecified place or not applicable; Y08.89XA Assault by other specified means, initial encounter; Z23 Encounter for immunization
CPT/HCPCS: 36415; 49083; 70450; 70486; 71045; 72125; 74018; 74176; 80048; 80053; 80074; 80076; 80320; 80329; 81003; 81015; 82042; 82140; 82248; 82272; 82310; 82330; 83615; 83690; 83735; 84100; 84157; 84702; 85014; 85018; 85025; 85027; 85610; 85730; 86850; 86900; 86901; 86922; 87040; 87086; 87205; 87522; 87641; 88112; 89051; 90686; 93005; 93975; 96365; 99285; A9270-GY; G0480; J0132; J0610; J0696; J2060; J2270; J2354; J2405; J2543; J2704; J3411; J3475; J7060; P9040

== ENCOUNTER 2020-08-07 19:09 | Inpatient (IN) ==
[2020-08-07 22:45] LABS: INR 1.75 (0.82-1.09)
[2020-08-07 22:56] LABS: Hematocrit 18 % (35-47); Hemoglobin 6.2 g/dL (12.0-16.0); Mean Corpuscular HGB Conc 34 g/dL (31-36); Mean Corpuscular Hemoglobin 33 pg (27-31); Mean Corpuscular Volume 97 fL (80-97); Mean Platelet Volume 8.3 fL (7.4-10.4); Platelet Count 128 10^3/uL (150-450); Red Cell Distribution Width 26 % (10-15); White Blood Count 6.2 10^3/uL (3.5-10.8)
[2020-08-07 23:07] LABS: ALT 29 U/L (7-52); AST 110 U/L (13-39); Albumin 2.2 g/dL (3.2-5.2); Albumin/Globulin Ratio 0.4 (1-3); Alkaline Phosphatase 64 U/L (34-104); Anion Gap 5 mmol/L (2-11); Blood Urea Nitrogen 8 mg/dL (6-24); CO2 Carbon Dioxide 23 mmol/L (22-32); Calcium 8.1 mg/dL (8.6-10.3); Chloride 106 mmol/L (101-111); EGFR African American 142.1 (>60); EGFR Non-African American 117.5 (>60); Globulin 5.5 g/dL (2-4); Glucose 89 mg/dL (70-100); Magnesium 1.4 mg/dL (1.9-2.7); Potassium 3.8 mmol/L (3.5-5.0); Sodium 134 mmol/L (135-145); Total Protein 7.7 g/dL (6.4-8.9)
[2020-08-07] MEDS ORDERED: Lorazepam PYXIS KEY PRN (23:07)
[2020-08-07] MEDS ORDERED: LORazepam 2 mg VIAL 1 ml IM ONE (23:07)
[2020-08-07 23:09] LABS: Acetaminophen < 15 mcg/mL; Alcohol, S 45 mg/dL (<10); Salicylate < 2.50 mg/dL (<30)
[2020-08-07] MEDS ORDERED: Lorazepam PYXIS KEY ONE (23:13)
[2020-08-07 23:14] LABS: HCG Pregnancy < 0.60 mIU/mL
[2020-08-07] MEDS ORDERED: Magnesium Sulfate 2 gm BAG 2 GM/50 ML BAG IVPB ONE (23:36)
[2020-08-07] MEDS ORDERED: NS 0.9% 1000 ml BAG 1,910 ML IV ONE (23:45)
[2020-08-07 23:46] LABS: Hematocrit 19 % (35-47); Hemoglobin 6.6 g/dL (12.0-16.0)
[2020-08-08] MEDS ORDERED: Pantoprazole VIAL 40 MG VIAL IV ONE (00:06)
[2020-08-08] MEDS ORDERED: cefTRIAXone 1 gm/50 mL NS BAG 1 GM/50 ML BAG IV ONE (00:19)
[2020-08-08] MEDS ORDERED: Azithromycin 500 mg/250 ml NS 500 MG/250 ML BAG IVPB ONE (00:19)
[2020-08-08] MEDS ORDERED: DOXYcycline 100 MG in NS 0.9% 250 ml 250 ML IVPB ONE (00:20)
[2020-08-08] MEDS ORDERED: Thiamine 100 MG/ML 2 ml VIAL (200 mg) IM ONE (00:31)
[2020-08-08 00:41] LABS: ABS Basophils 0.1 10^3/ul (0-0.2); ABS Monocytes 0.7 10^3/ul (0-0.8); ABS Neutrophils 4.4 10^3/ul (1.5-7.7); Eosinophil % 0.5 %; Lymphocyte % 15.3 %; Nucleated Red Blood Cells % 0.1
[2020-08-08] MEDS ORDERED: Ondansetron 4 mg VIAL 2 MG/ML 2 ml VIAL IV PRN (01:37)
[2020-08-08] MEDS: Multivitamins/Minerals TAB PO SCH (04:46)
[2020-08-08] MEDS ORDERED: Magnesium Sulfate IV 3 GM in NS 0.9% 100 ml BAG 100 ML IVPB ONE (07:21)
[2020-08-08] MEDS: Pantoprazole VIAL 40 MG VIAL IV SCH ×2 (08:29→21:20)
[2020-08-08 11:13] LABS: Ferritin 157.1 ng/mL (11-307)
[2020-08-08 11:17] LABS: Folate 8.04 ng/mL (>3.99)
[2020-08-08 12:43] LABS: Hematocrit 22 % (35-47); Hemoglobin 7.2 g/dL (12.0-16.0); Mean Corpuscular HGB Conc 33 g/dL (31-36); Mean Corpuscular Hemoglobin 32 pg (27-31); Mean Corpuscular Volume 97 fL (80-97); Red Blood Count 2.27 10^6 /uL (3.70-4.87); White Blood Count 7.7 10^3/uL (3.5-10.8)
[2020-08-08 13:49] LABS: ABS Basophils 0.2 10^3/ul (0-0.2); ABS Eosinophils 0.1 10^3/ul (0-0.6); ABS Lymphocytes 1.8 10^3/ul (1.0-4.8); ABS Monocytes 0.9 10^3/ul (0-0.8); ABS Neutrophils 4.7 10^3/ul (1.5-7.7); Eosinophil % 1.2 %; Lymphocyte % 23.5 %; Nucleated Red Blood Cells % 0.2; Platelet Count 135 10^3/uL (150-450); Red Cell Distribution Width 26 % (10-15)
[2020-08-08 17:58] LABS: Hematocrit 26 % (35-47); Hemoglobin 8.6 g/dL (12.0-16.0)
[2020-08-09 07:49] LABS: Hematocrit 21 % (35-47); Hemoglobin 7.2 g/dL (12.0-16.0); Mean Corpuscular HGB Conc 34 g/dL (31-36); Mean Corpuscular Hemoglobin 33 pg (27-31); Mean Corpuscular Volume 96 fL (80-97); Mean Platelet Volume 8.5 fL (7.4-10.4); Platelet Count 149 10^3/uL (150-450); Red Blood Count 2.21 10^6 /uL (3.70-4.87); Red Cell Distribution Width 26 % (10-15); White Blood Count 8.1 10^3/uL (3.5-10.8)
[2020-08-09 07:51] LABS: INR 1.73 (0.82-1.09)
[2020-08-09 07:55] LABS: Albumin/Globulin Ratio 0.4 (1-3); BUN/Creatinine Ratio 11.4 (8-20); Calcium 7.5 mg/dL (8.6-10.3); EGFR African American 112.1 (>60); EGFR Non-African American 92.7 (>60); Globulin 5.5 g/dL (2-4); Indirect Bilirubin 2.7 mg/dL (0.3-1.0); Magnesium 1.5 mg/dL (1.9-2.7); Potassium 3.5 mmol/L (3.5-5.0); Total Bilirubin 4.5 mg/dL (0.2-1.0); Total Protein 7.5 g/dL (6.4-8.9)
[2020-08-09] MEDS ORDERED: Magnesium Sulf 4 GM/100 ML IV 4,000 MG/100 ML BAG IVPB ONE (07:57)
[2020-08-09 08:23] LABS: ABS Basophils 0.2 10^3/ul (0-0.2); ABS Eosinophils 0.1 10^3/ul (0-0.6); ABS Lymphocytes 1.3 10^3/ul (1.0-4.8); ABS Monocytes 0.8 10^3/ul (0-0.8); ABS Neutrophils 5.6 10^3/ul (1.5-7.7); Eosinophil % 1.6 %; Lymphocyte % 16.6 %; Nucleated Red Blood Cells % 0.3
[2020-08-09 08:26] LABS: Polychromasia 2+
[2020-08-09] MEDS: Pantoprazole VIAL 40 MG VIAL IV SCH ×2 (09:04→21:43)
[2020-08-09] MEDS: Multivitamins/Minerals TAB PO SCH (09:04)
[2020-08-09 23:17] LABS: Hematocrit 23 % (35-47); Hemoglobin 7.6 g/dL (12.0-16.0)
[2020-08-10 07:18] LABS: Albumin/Globulin Ratio 0.4 (1-3); BUN/Creatinine Ratio 15.9 (8-20); Calcium 7.8 mg/dL (8.6-10.3); EGFR Non-African American 94.2 (>60); Globulin 5.6 g/dL (2-4); Potassium 4.1 mmol/L (3.5-5.0); Total Bilirubin 3.9 mg/dL (0.2-1.0); Total Protein 7.6 g/dL (6.4-8.9)
[2020-08-10 07:22] LABS: ABS Basophils 0.2 10^3/ul (0-0.2); ABS Eosinophils 0.1 10^3/ul (0-0.6); ABS Lymphocytes 1.5 10^3/ul (1.0-4.8); ABS Monocytes 0.7 10^3/ul (0-0.8); ABS Neutrophils 5.4 10^3/ul (1.5-7.7); Eosinophil % 1.9 %; Hematocrit 23 % (35-47); Hemoglobin 7.7 g/dL (12.0-16.0); Lymphocyte % 18.5 %; Mean Corpuscular HGB Conc 34 g/dL (31-36); Mean Corpuscular Hemoglobin 33 pg (27-31); Mean Corpuscular Volume 97 fL (80-97); Mean Platelet Volume 8.2 fL (7.4-10.4); Nucleated Red Blood Cells % 0.2; Platelet Count 162 10^3/uL (150-450); Red Blood Count 2.37 10^6 /uL (3.70-4.87); Red Cell Distribution Width 26 % (10-15); White Blood Count 7.8 10^3/uL (3.5-10.8)
[2020-08-10] MEDS ORDERED: Influenza VAC *QUAD* 2020-21* 0.5 ML SYRINGE IM ONE (09:00)
[2020-08-10] MEDS: Multivitamins/Minerals TAB PO SCH (09:14)
[2020-08-10] MEDS: Pantoprazole VIAL 40 MG VIAL IV SCH ×2 (09:15→22:54)
[2020-08-10 09:20] LABS: Magnesium 2.1 mg/dL (1.9-2.7)
[2020-08-10 10:29] LABS: Urine Appearance Clear; Urine Bacteria 1+ (Absent); Urine Bilirubin Negative (Negative); Urine Blood Negative (Negative); Urine Color Amber; Urine Glucose Negative (Negative); Urine Ketones Negative (Negative); Urine Nitrite Negative (Negative); Urine Protein Negative (Negative); Urine Red Blood Cell Trace(0-2/hpf) (Absent); Urine Specific Gravity 1.006 (1.010-1.030); Urine Squamous Epithelial Cell Present (Absent); Urine Urobilinogen Negative (Negative); Urine White Blood Cell Trace(0-5/hpf) (Absent)
[2020-08-10 12:24] LABS: Corrected Retic Count 1.8 % (0.5-1.5); Hematocrit for Retic CNT 23 % (35-47); Immature Retic Fraction 0.66; RBC Retic Count 2.37 10^6/uL (3.70-4.87)
[2020-08-10 12:44] LABS: Burr Cells 1+; Polychromasia 2+; Schistocytes 1+
[2020-08-10 12:45] LABS: Spherocytes 2+
[2020-08-10 12:46] LABS: Tear Drop Cells 1+
[2020-08-11 05:43] LABS: Hematocrit 22 % (35-47); Hemoglobin 7.5 g/dL (12.0-16.0)
[2020-08-11] MEDS: Pantoprazole VIAL 40 MG VIAL IV SCH (08:27)
[2020-08-11] MEDS: Multivitamins/Minerals TAB PO SCH (08:27)
[2020-08-11 16:22] VITALS: BP 115/69
== END 2020-08-11 18:50 | disposition left against medical advice (07) | DRG 53 ==
LOC: ED 19:09 → MED 08-08 01:37 → MEDTELE 08-08 23:07
PROVIDERS: ADMIT Internal Medicine; ATTEND Internal Medicine